=== PATIENT | male | born 1990 | race Caucasian/White ===

== ENCOUNTER 2017-09-28 18:53 | Emergency (ER) | payer SELFPAY ==
[2017-09-28 18:54] VITALS: BP 140/82; PULSE 68; RESP 20; TEMP 36.6; O2SAT 100; BMI 31.9
--- NOTE | 2017-09-28 20:09 | HMH.EDGIBL ---
ED Disposition Clinical Impression: Hemorrhoid Qualifiers: Hemorrhoid type: unspecified Qualified Code(s): K64.9 - Unspecified hemorrhoids Disposition: Home, Self-Care Condition on Discharge: Good Instructions: DI for Hemorrhoids Additional Instructions: call surg in am for follow up - Critical Care Critical Care Time: No Attestation: On 09/28/17, the high probability of a clinically significant, sudden or life threatening deterioration of the following system(s) required my full and direct attention, intervention and personal management. The time I documented below is in addition to time spent performing reported procedures but includes the following listed in this critical care notation. Medical Decision Making - Medical Records Medical records reviewed: Yes: I reviewed the patient's medical records. - Nolan Inquiry Pt receiving controlled substance: No Vital Signs: 09/28/17 18:54 Temperature 97.8 F Temperature Source Oral Pulse Rate [Left Brachial] 68 Respiratory Rate 20 Blood Pressure [Left Arm] 140/82 Blood Pressure Mean [Left Arm] 101 Blood Pressure Source [Left Arm] Automatic Cuff Blood Pressure Position [Left Arm] Sitting 02 Sat by Pulse Oximetry 100 Oxygen Delivery Method Room Air - Physician Consults Physician Consulted: ronyran Reason -: Pt condition GI Bleed HPI - General Chief complaint: Skin/Abscess/Foreign Body Stated complaint: hemorrhoids Time Seen by Provider: 09/28/17 20:09 Mode of Arrival: Ambulatory Source of Information: Patient, Relative, Medical Record Limitations: No Limitations Description of Symptoms (Recalled from ER Triage Doc. by RN): Pt states has 2 large hemrrhoids, states has been using preparation H and sitz baths x5 days with no relief. - History of Present Illness HPI Narrative: nonbleeding hemmorroid with pain progressive over the last few days and seen by pcp - reffered to surg MD complaint: other (hemmorroid) Onset (ago): day(s) Consistency: intermittent Severity: moderate Exacerbating factors: bowel movement Context: hemorrhoids Treatments Prior to Arrival: topical ointment - Related Data Home Medications Medication Instructions Recorded Confirmed Citalopram Hydrobromide [Celexa] 20 mg PO DAILY 09/28/17 09/28/17 Allergies Allergy/AdvReac Type Severity Reaction Status Date / Time Pertussis Vaccines Allergy Mild Verified 09/28/17 19:03 [PERTUSSIS VACCINES] TOPICAL STEROIDS Allergy Unknown Uncoded 06/23/17 14:50 [facility] History I have reviewed the patient's past medical history: Yes Medical History: Denies:: Diabetes Mellitus Type 1, Diabetes Mellitus Type 2 - Social History Smoking Status: Never smoker Tobacco Type: smokeless tobacco Alcohol Intake: never - Psychiatric History Expresses thoughts of harming self/others: None Suicide Plan Description: No Plan ROS Obtained: Yes All systems reviewed & no additional complaints - Constitutional Constitutional: Denies fever(s) - Eyes Eyes: Denies change in vision - ENT Ears, Nose, Mouth, and Throat: Denies sore throat - Cardiovascular Cardiovascular: Denies chest pain - Respiratory Respiratory: No cough - Gastrointestinal Gastrointestingal: Reports: other (hemmorroids). Denies: abdominal pain, black, tarry stools - Genitourinary Male Genitourinary: Denies hematuria - Musculoskeletal Musculoskeletal: Denies joint pain - Integumentary/Breasts Skin/Breast: Denies rash - Neurologic Neurologic: Denies seizure-like activity Physical Exam - General General appearance: in no apparent distress - Head Head exam: normocephalic - Eye Eye exam: Present: PERRL, EOMI - ENT ENT exam: Present: mucous membranes moist - Neck Neck exam: Present: trachea midline - Respiratory Respiratory exam: Absent: respiratory distress - Cardiovascular Cardiovascular exam: Present: regular rate - Abdominal Exam Abdominal exam: Present: soft - Rect
--- NOTE | 2017-09-28 20:12 | ED_ITS ---
ED Disposition Clinical Impression: Hemorrhoid Qualifiers: Hemorrhoid type: unspecified Qualified Code(s): K64.9 - Unspecified hemorrhoids Disposition: Home, Self-Care Condition on Discharge: Good Instructions: DI for Hemorrhoids Additional Instructions: call surg in am for follow up - Critical Care Critical Care Time: No Attestation: On 09/28/17, the high probability of a clinically significant, sudden or life threatening deterioration of the following system(s) required my full and direct attention, intervention and personal management. The time I documented below is in addition to time spent performing reported procedures but includes the following listed in this critical care notation. Medical Decision Making - Medical Records Medical records reviewed: Yes: I reviewed the patient's medical records. - Nolan Inquiry Pt receiving controlled substance: No Vital Signs: 09/28/17 18:54 Temperature 97.8 F Temperature Source Oral Pulse Rate [Left Brachial] 68 Respiratory Rate 20 Blood Pressure [Left Arm] 140/82 Blood Pressure Mean [Left Arm] 101 Blood Pressure Source [Left Arm] Automatic Cuff Blood Pressure Position [Left Arm] Sitting 02 Sat by Pulse Oximetry 100 Oxygen Delivery Method Room Air - Physician Consults Physician Consulted: ronyran Reason -: Pt condition GI Bleed HPI - General Chief complaint: Skin/Abscess/Foreign Body Stated complaint: hemorrhoids Time Seen by Provider: 09/28/17 20:09 Mode of Arrival: Ambulatory Source of Information: Patient, Relative, Medical Record Limitations: No Limitations Description of Symptoms (Recalled from ER Triage Doc. by RN): Pt states has 2 large hemrrhoids, states has been using preparation H and sitz baths x5 days with no relief. - History of Present Illness HPI Narrative: nonbleeding hemmorroid with pain progressive over the last few days and seen by pcp - reffered to surg MD complaint: other (hemmorroid) Onset (ago): day(s) Consistency: intermittent Severity: moderate Exacerbating factors: bowel movement Context: hemorrhoids Treatments Prior to Arrival: topical ointment - Related Data Home Medications Medication Instructions Recorded Confirmed Citalopram Hydrobromide [Celexa] 20 mg PO DAILY 09/28/17 09/28/17 Allergies Allergy/AdvReac Type Severity Reaction Status Date / Time Pertussis Vaccines Allergy Mild Verified 09/28/17 19:03 [PERTUSSIS VACCINES] TOPICAL STEROIDS Allergy Unknown Uncoded 06/23/17 14:50 [facility] History I have reviewed the patient's past medical history: Yes Medical History: Denies:: Diabetes Mellitus Type 1, Diabetes Mellitus Type 2 - Social History Smoking Status: Never smoker Tobacco Type: smokeless tobacco Alcohol Intake: never - Psychiatric History Expresses thoughts of harming self/others: None Suicide Plan Description: No Plan ROS Obtained: Yes All systems reviewed & no additional complaints - Constitutional Constitutional: Denies fever(s) - Eyes Eyes: Denies change in vision - ENT Ears, Nose, Mouth, and Throat: Denies sore throat - Cardiovascular Cardiovascular: Denies chest pain - Respiratory Respiratory: No cough - Gastrointestinal Gastrointestingal: Reports: other (hemmorroids). Denies: abdominal pain, black , tarry stool
[2017-09-28 22:25] VITALS: BP 178/74; PULSE 85; RESP 20; TEMP 37.1; O2SAT 99
== END 2017-09-28 22:27 | disposition home or self-care (01) ==
PROVIDERS: Emergency Provider Emergency Medicine; Family Provider Internal Medicine Adolescent Medicine
DX: K64.5 Perianal venous thrombosis (principal)
CPT/HCPCS: 46083; 99281

== ENCOUNTER → 2018-06-10 09:47 | Outpatient (CLI) | payer OTHER, SELFPAY ==
--- NOTE | 2018-06-10 09:59 | XR_ITS ---
XR ankle RT min 3V HISTORY: ITS.REASON: RT ANKLE PAIN ORDERING PHYSICIAN: Redd Crespo MD PATIENT AGE: 28 years Comparison: None FINDINGS: No fracture or dislocation. No lytic or blastic change. There is normal mineralization.. The joint spaces are well-preserved. No significant degenerative/arthritic changes. No erosive changes evident. A well-circumscribed lucency is noted over the proximal and superior aspect of the ventricular probably related to an ununited ossification center or spur IMPRESSION: Negative ankle, no acute finding
== END ==
PROVIDERS: PCP Internal Medicine Adolescent Medicine; Visit Provider Family Medicine
DX: M25.571 Pain in right ankle and joints of right foot (principal)
CPT/HCPCS: 73610

== ENCOUNTER → 2018-09-07 17:55 | Outpatient (CLI) | payer OTHER, SELFPAY ==
[2018-09-07 21:38] LABS: Semen Viscosity Normal (Normal); WBCs,Semen Trace
[2018-09-07 21:39] LABS: 3Hr Motility Quality Moderate Progression (Mod-Rapid); 3Hr Sperm Motility 60 % (50-60); Motility Quality Good Progression (Mod-Rapid); Sperm Count 22 mil/mm3 (20-160); Sperm Morphology 57.5 (Normal); Sperm Motility 80 % (50-90)
== END ==
PROVIDERS: Visit Provider Nurse Practitioner Obstetrics & Gynecology
DX: Z31.41 Encounter for fertility testing (principal)
CPT/HCPCS: 89320

== ENCOUNTER 2019-09-29 08:13 | Observation (INO) ==
--- NOTE | 2019-09-29 08:21 | Emergency Department Note ---
ED Disposition Clinical Impression: Acute appendicitis Qualifiers: Acute appendicitis type: with localized peritonitis Appendicitis gangrene presence: unspecified whether gangrene present Appendicitis perforation presence: without perforation Appendicitis abscess presence: without abscess Qualified Code(s): K35.30 - Acute appendicitis with localized peritonitis, without perforation or gangrene Disposition: Admitted as Observation Condition on Discharge: [facility] Critical Care Time: No Attestation: On , the high probability of a clinically significant, sudden or life threatening deterioration of the following system(s) required my full and direct attention, intervention and personal management. The time I documented below is in addition to time spent performing reported procedures but includes the following listed in this critical care notation. Medical Decision Making - Nolan Inquiry Pt receiving controlled substance: Yes Nolan was queried for this patient: No Reason not queried -: Emergent pt cond-no time Risks and benefits of using a controlled substance: were not discussed with pt by me Vital Signs: 09/29/19 08:14 09/29/19 08:44 09/29/19 09:58 Temperature 98.5 F 98.2 F Temperature Source Oral Oral Pulse Rate 89 Pulse Rate [Right Brachial] 92 H 84 Respiratory Rate 17 15 18 Blood Pressure 125/79 Blood Pressure [Right Arm] 124/92 H 150/87 H Blood Pressure Mean [Right Arm] 102 108 02 Sat by Pulse Oximetry 99 100 Oxygen Delivery Method Room Air - Lab Data Lab Results 09/29/19 08:18: Urine Color Yellow, Urine Appearance Clear, Urine pH 7.5, Ur Specific [place] 1.020, Urine Protein Negative, Urine Glucose (UA) Negative, Urine Ketones Negative, Urine Blood Negative, Urine Nitrate Negative, Urine Bilirubin Negative, Urine Urobilinogen 0.2, Ur Leukocyte Esterase Negative, Urine RBC None, Urine WBC Occasional, Ur Squamous Epith Cells Occasional, Urine Bacteria None 09/29/19 08:25: WBC 15.5 H, RBC 5.30, Hgb 16.9, Hct 49.5, MCV 93.4, MCH 32.0 H, MCHC 34.2, RDW 13.2, Plt Count 229, MPV 8.2, Neut % (Auto) 89.0 H, Lymph % (Auto ) 7.7 L, [place] % (Auto) 2.7, Eos % (Auto) 0.4, Baso % (Auto) 0.2, Neut # (Auto) 13.8 H, Lymph # (Auto) 1.2, [place] # (Auto) 0.4, Eos # (Auto) 0.1, Baso # (Auto) 0.0, Total Counted 100, Neutrophils % (Manual) 88 H, Lymphocytes % (Manual) 9 L, Monocytes % (Manual) 3, Platelet Estimate Normal, RBC Morphology Normal 09/29/19 08:25: Sodium 141, Potassium 4.0, Chloride 104, Carbon Dioxide 25, Anion Gap 16.0 H, BUN 15, Creatinine 1.00, Estimated Creat Clear 130, Estimated GFR 87, Est GFR ( Amer) 105, Glucose 121 H, Calcium 9.8, Total Bilirubin 1.0, AST 26, ALT 26, Alkaline Phosphatase 79, C-Reactive Protein 8.8 H, Total Protein 7.9, Albumin 4.7, Globulin 3.2, Albumin/Globulin Ratio 1.5, Amylase 73 09/29/19 08:25: ESR 5 09/29/19 08:25: Lipase 80 09/29/19 10:20: Urine Color Yellow, Urine Appearance Clear, Urine pH 6.0, Ur Specific [place] <= 1.005, Urine Protein Negative, Urine Glucose (UA) Negative, Urine Ketones Trace, Urine Blood Trace-l, Urine Nitrate Negative, Urine Bilirubin Negative, Urine Urobilinogen 0.2, Ur Leukocyte Esterase Negative, Urine WBC Occasional, Ur Squamous Epith Cells Occasional, Urine Bacteria Trace Result diagrams: 09/29/19 08:25 09/29/19 08:25 Orders (Tests/Meds): ED MEDICATIONS Generic Name Dose Route Start Last Admin Trade Name Freq PRN Reason Stop Dose Admin Hydrocodone Bitart/Acetaminophen 1 tab 09/29/19 11:26 09/29/19 17:05 [place] 5/325mg Tablet PO 10/29/19 11:25 1 tab Q6HP PRN Administration Moderate to Severe Pain Lactated Ringer's 1,000 mls @ 100 mls/hr 09/29/19 10:15 09/29/19 12:55 Lactated Ringer's 1000 Ml Bag IV 09/29/19 20:14 100 mls/hr .Q10H ONE Administration Piperacillin Sod/Tazobactam 100 mls @ 200 mls/hr 09/29/19 16:00 09/29/19 16:58 Sod 4.5 gm/ Sodium Chloride IV 04/09/20 15:59 200 mls/hr Q8H NATHALY Administration Protocol Morphine Sulfate 2 mg 09/29/19 11:26 Morphine 2mg/Ml Syringe IV 10/29/19 11:25 Q2HP PRN Severe Pain Ondansetron HCl 4 mg 09/29/19 11:26 Zofran 4mg/2ml Vial IV 10/29/19 11:25 Q6HP PRN Nausea Sodium Chloride 8 ml 09/29/19 08:31 09/29/19 08:38 Sodium Chloride 0.9% 10ml Vial IV 10/29/19 08:30 8 ml NEEDED PRN Administration dilute pepcid Discontinued Medications Generic Name Dose Route Start Last Admin Trade Name Freq PRN Reason Stop Dose Admin Famotidine 20 mg 09/29/19 08:31 09/29/19 08:38 Pepcid 20mg/2ml Vial IV 09/29/19 08:32 20 mg ONCE ONE Administration Hydromorphone HCl 0.5 mg 09/29/19 11:39 Dilaudid 2mg/Ml Syringe IV 09/29/19 13:39 Q5MINP PRN Moderate to Severe Pain Sodium Chloride 1,000 mls @ 999 mls/hr 09/29/19 08:30 09/29/19 08:38 Sod Chlor 0.9% 1000ml Bag IV 09/29/19 09:30 999 mls/hr .Q1H1M NATHALY Administration Ampicillin Sodium/Sulbactam 100 mls @ 100 mls/hr 09/29/19 10:15 09/29/19 10:12 Sodium 3 gm/ Sodium Chloride IV 09/29/19 11:14 100 mls/hr ONCE ONE Administration Ioversol 75 ml 09/29/19 09:12 09/29/19 09:13 Rad-Optiray 350 100ml Vial IV 09/29/19 09:13 75 ml ONCE ONE Administration Protocol Meperidine HCl 12.5 mg 09/29/19 11:39 Meperidine 25mg/Ml 1ml Syringe IV 09/29/19 13:39 Q5MINP PRN Shivering Meperidine HCl 25 mg 09/29/19 11:39 Meperidine 25mg/Ml 1ml Syringe IV 09/29/19 13:39 Q5MINP PRN Shivering Metoclopramide HCl 5 mg 09/29/19 08:31 09/29/19 08:38 Reglan 10mg/2ml Vial IVP 09/29/19 08:32 5 mg ONCE ONE Administration Morphine Sulfate 4 mg 09/29/19 08:31 09/29/19 08:38 Morphine 4mg/Ml Syringe IV 09/29/19 08:32 4 mg ONCE ONE Administration Morphine Sulfate 2 mg 09/29/19 11:39 Morphine 2mg/Ml Syringe IV 09/29/19 13:39 Q5MINP PRN Severe Pain Ondansetron HCl 4 mg 09/29/19 08:31 09/29/19 09:52 Zofran 4mg/2ml Vial IV 09/29/19 08:32 Not Given ONCE ONE Ondansetron HCl 4 mg 09/29/19 11:39 Zofran 4mg/2ml Vial IV 09/29/19 13:39 Q6HP PRN Nausea Promethazine HCl 6.25 mg 09/29/19 11:39 Phenergan 25mg/Ml 1ml Vial IV 09/29/19 13:39 [id number] PRN Nausea And Vomiting Sodium Chloride 10 ml 09/29/19 09:12 09/29/19 09:13 Rad-Saline Flush 10ml Syringe IV 09/29/19 09:13 10 ml ONCE ONE Administration Sodium Chloride 25 ml 09/29/19 11:39 Sod Chlor 0.9% 25ml Bag IV 09/29/19 13:39 NEEDED PRN for Use with IV Promethazine - CT Data CT Scan: Abdomen, Pelvis Time Received: 09:[address] Reviewed: Yes: I discussed the CT results w/the radiologist Findings Narrative: FINDINGS: LOWER THORAX: No acute finding ABDOMEN & PELVIS: The liver, gallbladder, spleen, adrenal glands, pancreas, and kidneys have an unremarkable appearance. No intestinal obstruction or free air. The appendix is thickened measuring up to 9 mm with minimal haziness of the periappendiceal fat compatible with acute appendicitis. No evidence of perforation or abscess. There are few scattered diverticula but no evidence of diverticulitis. No acute bony findings IMPRESSION: Distended appendix with stranding of the periappendiceal fat compatible with acute appendicitis. No abscess or perforation evident. Dr. Zuniga in the ER notified of the above findings by phone 09/29/2019 at 9:20 a.m. Dictated by: Conor Morris MD 09/29/2019 09:28 Electronically signed by Conor Morris MD in [place] 09/29/2019 09:28 - Physician Consults Physician Consulted: Dr. Preston Time: 09:39 Reason -: Surgical Eval/Care Comment/Response: He will come in and see the patient. - Reevaluation(s) Time: 09:25 Reevaluation #1: feeling better, comfortable. notified of diagnosis. surgery called. General Adult HPI - General Chief complaint: Abdominal Pain Stated complaint: abdominal pain Time Seen by Provider: 09/29/19 08:32 Mode of Arrival: Ambulatory Limitations: No Limitations Description of Symptoms (Recalled from ER Triage Doc. 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 States he hurts in his upper abdomen, radiating to his back, and his lower abdomen as well. Has a hx of IBS and "stomach issues". - History of Present Illness HPI narrative: 10-hour history of abdominal pain. Locates the primary pain in the epigastrium midline but says lower abdomen also feels like "I have been doing crunches". 2 episodes of vomiting, but thinks it was due to the pain. Radiation to the back. Normal bowel movement. No fever. Prior history of stomach problems diagnosed as IBS and lactose intolerance. No prior endoscopies. He has had a gallbladder evaluation about 3 years ago that was negative. No prior surgeries. - Related Data Home Medications Medication Instructions Recorded Confirmed No Known Home Medications 09/29/19 09/29/19 Allergies Allergy/AdvReac Type Severity Reaction Status Date / Time Pertussis Vaccines Allergy Mild Verified 09/29/19 08:20 [PERTUSSIS VACCINES] TOPICAL STEROIDS Allergy Unknown Uncoded 10/02/17 15:32 [facility] History - Hepatitis A Screen Drug use history?: No High risk sexual behaviors?: No History of sexually transmitted infection?: No Currently employed?: No Childcare worker?: No Do you have indoor plumbing?: Yes Do you have electricity?: Yes Attestation statement:: This patient has been screened for Hepatitis A risk factors. I have reviewed the patient's past medical history: Yes Medical History: Denies:: Diabetes Mellitus Type 1, Diabetes Mellitus Type 2 - Social History Smoking Status: Never smoker Tobacco Type: smokeless tobacco Alcohol Intake: current Alcohol Intake Frequency:: holidays/special occasions only Substance Use Type: denies use Family Hx:: Hypertension, Diabetes ROS Obtained: Yes Systems reviewed as appropriate & no additional complaints - Constitutional Constitutional: Denies fever(s) - Gastrointestinal Gastrointestingal: Reports: abdominal pain, nausea, vomiting. Denies: constipation, diarrhea - Genitourinary Male Genitourinary: Denies difficulty urinating - Musculoskeletal Musculoskeletal: Reports back pain Physical Exam - General General appearance: alert, in distress - Head Head exam: atraumatic, normocephalic - Eye Eye exam: Present: normal appearance, EOMI - ENT ENT exam: Present: mucous membranes moist - Neck Neck exam: Present: normal inspection, trachea midline - Chest Chest inspection: Present: symmetric chest wall rise - Respiratory Respiratory exam: Absent: respiratory distress - Cardiovascular Cardiovascular exam: Present: regular rate - Abdominal Exam Abdominal exam: Present: soft, tenderness, guarding Abdominal tenderness: Present: RLQ, epigastrium - Extremities Exam Extremities exam: Present: normal inspection - Neurological Exam Neurological exam: Present: alert, oriented X3 - Psychiatric Psychiatric exam: Present: normal affect, normal mood - Skin Skin exam: Present: warm, dry
[2019-09-29 08:27] LABS: Microscopic, Urine URINE MICROSCOPIC (MICROSCOPIC)
[2019-09-29 08:28] LABS: Appearance,Urine CLEAR (Clear); Bilirubin,Urine Negative (Negative); Blood, Urine Negative (Negative); Color,Urine YELLOW (Yellow); Glucose,Urine (UA) Negative (Negative); Ketones,Urine Negative (Negative); Leukocyte Esterase,Urine Negative (Negative); PH,Urine 7.5 (5.0-8.5); Protein,Urine Negative (Negative); Urobilinogen,Urine 0.2 EU/dl (0.2)
[2019-09-29 08:37] LABS: Squamous Epithelial Cell,Urine Occasional #/hpf (0-5); WBC,Urine Occasional #/hpf (0-3)
[2019-09-29 08:40] LABS: Basophils % 0.2 % (0.1-2.0); Eosinophils # 0.1 K/mm3 (0.0-0.4); Eosinophils % 0.4 % (0.1-12.0); Hematocrit 49.5 % (42.0-52.0); Hemoglobin 16.9 g/dL (14.1-18.0); Lymphocytes # 1.2 K/mm3 (0.7-4.5); Lymphocytes % 7.7 % (10-50); Mean Corpuscular HGB Conc 34.2 g/dL (31.8-35.4); Mean Corpuscular Volume 93.4 fl (80-94); Mean Platelet Volume 8.2 fl (7.4-10.4); Monocytes # 0.4 K/mm3 (0.1-1.0); Monocytes % 2.7 % (1.7-9.3); Neutrophils # 13.8 K/mm3 (1.8-7.8); Platelet Count 229 K/mm3 (142-424); Red Cell Distribution Width 13.2 % (11.5-17.5); White Blood Count 15.5 K/mm3 (4.8-10.8)
[2019-09-29 08:42] LABS: Albumin Level 4.7 g/dl (3.5-5.0); Albumin/Globulin Ratio 1.5 (1.1-1.8); Calcium 9.8 mg/dl (8.4-10.2); Globulin 3.2 g/dL (1.3-3.2); Total Protein,Serum 7.9 g/dl (6.3-8.2)
[2019-09-29 08:48] LABS: C-Reactive Protein 8.8 mg/L (0-4)
[2019-09-29 09:05] LABS: Lymphocytes % 9 % (10-50); Monocytes % 3 % (2-9); Neutrophils % 88 % (42-76); Total Cells Counted 100
[2019-09-29 09:06] LABS: RBC Morphology Normal
--- NOTE | 2019-09-29 11:09 | Pharmacy Consult Notes ---
[facility] Pharmacy VTE Monitoring - Patient Demographics Admission date: 09/29/19 Report Date: 09/29/19 Time: 11:08 Allergies/Adverse Reactions: Patient Allergies Pertussis Vaccines [PERTUSSIS VACCINES] Allergy (Mild, Verified 09/29/19 08:20) TOPICAL STEROIDS Allergy (Unknown, Uncoded 10/02/17 15:32) Height: 1.78 m Weight: 86.183 kg Patient Problems: Current Active Problems Acute appendicitis (Acute) - VTE Risk Labs: VTE Related Lab Results Hgb 16.9 g/dL (14.1-18.0) 09/29/19 08:25 Hct 49.5 % (42.0-52.0) 09/29/19 08:25 Plt Count 229 K/mm3 (142-424) 09/29/19 08:25 BUN 15 mg/dl (9-20) 09/29/19 08:25 Creatinine 1.00 mg/dl (0.66-1.25) 09/29/19 08:25 Estimated Creat Clear 130 mL/min (50-200) 09/29/19 08:25 Clinical Trial Participant: No - Prophylaxis VTE Prophylaxis Ordered?: Yes Types of VTE Prophylaxis: TEDS Knee High
--- NOTE | 2019-09-29 11:32 | Operative Note ---
Date of procedure: 09/29/19 Pre-op Diagnosis:: Appendicitis Post-op Diagnosis:: Suppurative appendicitis Procedure performed:: Laparoscopic appendectomy Surgeon:: Hola Preston MD [employer]ER:: Prudencio Betancourt Anesthesia: SUZANNA Estimated blood loss (mL): 15 Operative findings:: Severe periappendiceal inflammation with suppurative changes along the mid/distal appendix Operative note:: After informed consent was obtained the patient was taken to the operating room and placed in the supine position. General anesthesia was induced and his abdomen was prepped and draped in a sterile fashion. After infiltration local anesthetic an infraumbilical incision was made. A Veress needle was placed in position. The abdomen was insufflated. A 12 mm optical trocar was placed in position. Under direct visualization a 5 mm trochars placed in the suprapubic position and an additional 5 mm trocar was placed in the left lower quadrant. The appendix was carefully inspected. Severe inflammation was encountered and the appendix was essentially "stuck" to the lateral abdominal wall. Suppurative changes along the mid/distal appendix were confirmed. A combination of blunt dissection and harmonic jazmine were utilized to elevate/free the appendix. Harmonic jazmine were utilized to take down the mesoappendix. An Endopath 45 stapling device was utilized to transect the appendix at its base. The appendix was placed in a retrieval bag and removed through the infraumbilical trocar site. The right lower quadrant was thoroughly irrigated. No active bleeding or sign of injury noted. The fluid was evacuated. Fascia at the infraumbilical trocar site was reapproximated with 0 Ethibond. Pneumoperitoneum was released as of the remaining trocars were removed. All wounds were irrigated and skin was closed with 4-0 Monocryl in a subcuticular fashion. Steri-Strips were applied and the patient's anesthetic agents were reversed prior to transfer to recovery. Condition: stable Disposition: PACU Specimens:: Appendix Complications:: No immediate
--- NOTE | 2019-09-29 11:38 | Progress Note ---
[facility] Anesthesia Checklist - Patient Identification Patient Identification: Arm Band - Structural Data Admitted From: Home Planned Operative Procedure/s: laparoscopic appendectomy Consent for Planned Operative Procedure(s) Verified: Yes Verified Documents: Surgical Consent, History and Physical - NPO Status Verified Time NPO: 00:00 - Additional verifications Anesthesia Reactions: No - Airway Assessment C-Spine Mobility Assessed: Yes (mp2) TMJ Mobility Assessed: Yes Dentition: Good Dentition - Neurological Assessment Level of Consciousness: Awake, Alert - Anesthesia Plan Anesthesia Risk discussed: Yes Anesthesia Plan: Verified ASA Class: II (e) Anesthesia Type: General [facility] History I have reviewed the patient's past medical history: Yes Medical History: Denies:: Cancer, Diabetes Mellitus Type 1, Diabetes Mellitus Type 2, MRSA *Have you ever received a pneumonia vaccine?: No *Have you received a flu vaccine this season?: Yes Anesthesia experience/problems:: nac Other Surgeries: Yes: No Previous Surgery Amputation: No Fractures: No - *Social History Smoking Status: Never smoker Tobacco Type: smokeless tobacco Alcohol Intake: never Alcohol Intake Frequency:: holidays/special occasions only Substance Use Type: denies use *Occupational Status:: employed Housing: house *Travel in the last 8 weeks: None Family Hx:: Hypertension, Diabetes
--- NOTE | 2019-09-29 11:38 | Progress Note ---
[facility] Anesthesia Record Part I Intake, IV Amount: 1,300 Estimated blood loss (mL): 10 Urine output (mL): 250 Blood Pressure: 158/93 SaO2: 100 Pulse Rate: 84 Respiratory Rate: 16 Temperature: 97.6 F Patient is:: Drowsy, Stable Stable to PACU at:: 11:30
--- NOTE | 2019-09-29 12:57 | Progress Note ---
[facility] Anesthesia Record Part II Discharge Time: 12:00 Destination: Medical Surgical Department PACU nurse assessment reviewed?: Yes Patient Condition:: Good Anesthesia Complications:: None Swallowing reflex intact?: Yes Cyanosis?: No Blood Pressure: 135/76 Pulse Rate: 60 Temperature: 97.8 F Mental Status: Alert & Oriented Pain level:: 0 Nausea and/or vomitting:: None Intake, IV Amount: 0
[2019-09-30 06:18] LABS: Eosinophils # 0.2 K/mm3 (0.0-0.4); Eosinophils % 2.3 % (0.1-12.0); Monocytes # 0.4 K/mm3 (0.1-1.0); Red Cell Distribution Width 13.3 % (11.5-17.5)
[2019-09-30 06:34] LABS: Basophils % 0.4 % (0.1-2.0); Hematocrit 43.6 % (42.0-52.0); Lymphocytes % 22.1 % (10-50); Mean Corpuscular HGB Conc 33.8 g/dL (31.8-35.4); Mean Corpuscular Volume 92.2 fl (80-94); Mean Platelet Volume 7.8 fl (7.4-10.4); Monocytes % 4.1 % (1.7-9.3); Neutrophils # 6.3 K/mm3 (1.8-7.8); Platelet Count 191 K/mm3 (142-424); Red Blood Count 4.73 M/mm3 (4.60-6.20); White Blood Count 8.8 K/mm3 (4.8-10.8)
[2019-09-30 06:38] LABS: Hemoglobin 14.8 g/dL (14.1-18.0)
--- NOTE | 2019-09-30 08:13 | Progress Note ---
Subjective Patient reports: feels better Exam Vital signs and Labs for Last 24 Hours: Temp Pulse Resp BP Pulse Ox 98.0 F 64 16 110/72 97 09/30/19 04:00 09/30/19 04:00 09/30/19 04:00 09/30/19 04:00 09/30/19 04:00 Laboratory Results - last 24 hr 09/29/19 08:18: Urine Color Yellow, Urine Appearance Clear, Urine pH 7.5, Ur Specific [place] 1.020, Urine Protein Negative, Urine Glucose (UA) Negative, Urine Ketones Negative, Urine Blood Negative, Urine Nitrate Negative, Urine Bilirubin Negative, Urine Urobilinogen 0.2, Ur Leukocyte Esterase Negative, Urine RBC None, Urine WBC Occasional, Ur Squamous Epith Cells Occasional, Urine Bacteria None 09/29/19 08:25: WBC 15.5 H, RBC 5.30, Hgb 16.9, Hct 49.5, MCV 93.4, MCH 32.0 H, MCHC 34.2, RDW 13.2, Plt Count 229, MPV 8.2, Neut % (Auto) 89.0 H, Lymph % (Auto) 7.7 L, [place] % (Auto) 2.7, Eos % (Auto) 0.4, Baso % (Auto) 0.2, Neut # (Auto) 13.8 H, Lymph # (Auto) 1.2, [place] # (Auto) 0.4, Eos # (Auto) 0.1, Baso # (Auto) 0.0, Total Counted 100, Neutrophils % (Manual) 88 H, Lymphocytes % (Manual) 9 L, Monocytes % (Manual) 3, Platelet Estimate Normal, RBC Morphology Normal 09/29/19 08:25: Sodium 141, Potassium 4.0, Chloride 104, Carbon Dioxide 25, Anion Gap 16.0 H, BUN 15, Creatinine 1.00, Estimated Creat Clear 130, Estimated GFR 87, Est GFR ( Amer) 105, Glucose 121 H, Calcium 9.8, Total Bilirubin 1.0, AST 26, ALT 26, Alkaline Phosphatase 79, C-Reactive Protein 8.8 H, Total Protein 7.9, Albumin 4.7, Globulin 3.2, Albumin/Globulin Ratio 1.5, Amylase 73 09/29/19 08:25: ESR 5 09/29/19 08:25: Lipase 80 09/29/19 10:20: Urine Color Yellow, Urine Appearance Clear, Urine pH 6.0, Ur Specific [place] <= 1.005, Urine Protein Negative, Urine Glucose (UA) Negative, Urine Ketones Trace, Urine Blood Trace-l, Urine Nitrate Negative, Urine Bilirubin Negative, Urine Urobilinogen 0.2, Ur Leukocyte Esterase Negative, Urine WBC Occasional, Ur Squamous Epith Cells Occasional, Urine Bacteria Trace 09/30/19 05:47: WBC 8.8 D, RBC 4.73, Hgb 14.8 D, Hct 43.6, MCV 92.2, MCH 31.2, MCHC 33.8, RDW 13.3, Plt Count 191, MPV 7.8, Neut % (Auto) 71.0, Lymph % (Auto) 22.1, [place] % (Auto) 4.1, Eos % (Auto) 2.3, Baso % (Auto) 0.4, Neut # (Auto) 6.3, Lymph # (Auto) 2.0, [place] # (Auto) 0.4, Eos # (Auto) 0.2, Baso # (Auto) 0.0 I & O for Last 24 hours: Intake & Output 09/27/19 09/28/19 09/29/19 09/30/19 11:59 11:59 11:59 11:59 Intake Total 1300 / 1300 1401 / 1401 Output Total 450 / 450 Balance 1300 / 1300 951 / 951 Weight 190 lb 181 lb 1 oz - Constitutional no acute distress - *Routine Respiratory Exam Absent: respiratory distress - *Routine Cardiovascular Exam Present: RRR - *Routine Abdominal Exam Present: soft Comments: Dressings intact. No cellulitis. Progress Note: A&P (1) Suppurative appendicitis Status: Acute Assessment and plan: Overall, doing well status post laparoscopic appendectomy Discharge home with close outpatient follow-up Complete short course of antibiotics secondary to suppurative nature of appendicitis Slowly advance diet Current Visit: Yes
--- NOTE | 2019-09-30 08:19 | Discharge Summary ---
General - General Admission date:: 09/29/19 Discharge date: 09/30/19 HPI HPI: This is a 29-year-old gentleman who presented to the emergency department with increasing right lower quadrant pain and nausea. A CT scan revealed changes consistent with appendicitis and the surgical service was consulted for evaluation and management. Hospital Course Hospital Course: The patient underwent laparoscopic appendectomy. Please see operative report for detail. Intraoperative findings confirmed suppurative appendicitis. Secondary to these findings, he was placed in observation overnight. He convalesced well and remained afebrile with stable and normal vital signs. On the morning of postoperative day 1 he was deemed appropriate for discharge. Objective Vital signs: Temp Pulse Resp BP Pulse Ox 98.0 F 64 16 110/72 97 09/30/19 04:00 09/30/19 04:00 09/30/19 04:00 09/30/19 04:00 09/30/19 04:00 no acute distress - *Routine HEENT Exam Head: Present: normocephalic, atraumatic - *Routine Neck Exam Present: full ROM - Routine Chest/Breast/Axilla Exam Chest wall: Absent: tenderness - *Routine Respiratory Exam Absent: respiratory distress - *Routine Cardiovascular Exam Present: RRR - *Routine Abdominal Exam Present: soft - *Routine Extremities Exam Present: full ROM - Routine Back/Spine/Pelvis Exam Back/Spine: Present: full ROM - *Routine Skin Exam Absent: cyanosis, erythema - *Routine Neurological Exam Present: alert, oriented X3 - Routine Psychiatric Exam Present: normal affect Results Labs on day of discharge: Labs from last 24 hours 09/30/19 09/29/19 09/29/19 05:47 10:20 08:25 WBC 8.8 D RBC 4.73 Hgb 14.8 D Hct 43.6 MCV 92.2 MCH 31.2 MCHC 33.8 RDW 13.3 Plt Count 191 MPV 7.8 Neut % (Auto) 71.0 Lymph % (Auto) 22.1 [place] % (Auto) 4.1 Eos % (Auto) 2.3 Baso % (Auto) 0.4 Neut # (Auto) 6.3 Lymph # (Auto) 2.0 [place] # (Auto) 0.4 Eos # (Auto) 0.2 Baso # (Auto) 0.0 Total Counted Neutrophils % (Manual) Lymphocytes % (Manual) Monocytes % (Manual) Platelet Estimate RBC Morphology ESR Sodium Potassium Chloride Carbon Dioxide Anion Gap BUN Creatinine Estimated Creat Clear Estimated GFR Est GFR ( Amer) Glucose Calcium Total Bilirubin AST ALT Alkaline Phosphatase C-Reactive Protein Total Protein Albumin Globulin Albumin/Globulin Ratio Amylase Lipase 80 Urine Color Yellow Urine Appearance Clear Urine pH 6.0 Ur Specific [place] <= 1.005 Urine Protein Negative Urine Glucose (UA) Negative Urine Ketones Trace Urine Blood Trace-l Urine Nitrate Negative Urine Bilirubin Negative Urine Urobilinogen 0.2 Ur Leukocyte Esterase Negative Urine RBC Urine WBC Occasional Ur Squamous Epith Cells Occasional Urine Bacteria Trace 09/29/19 09/29/19 09/29/19 08:25 08:25 08:25 WBC 15.5 H RBC 5.30 Hgb 16.9 Hct 49.5 MCV 93.4 MCH 32.0 H MCHC 34.2 RDW 13.2 Plt Count 229 MPV 8.2 Neut % (Auto) 89.0 H Lymph % (Auto) 7.7 L [place] % (Auto) 2.7 Eos % (Auto) 0.4 Baso % (Auto) 0.2 Neut # (Auto) 13.8 H Lymph # (Auto) 1.2 [place] # (Auto) 0.4 Eos # (Auto) 0.1 Baso # (Auto) 0.0 Total Counted 100 Neutrophils % (Manual) 88 H Lymphocytes % (Manual) 9 L Monocytes % (Manual) 3 Platelet Estimate Normal RBC Morphology Normal ESR 5 Sodium 141 Potassium 4.0 Chloride 104 Carbon Dioxide 25 Anion Gap 16.0 H BUN 15 Creatinine 1.00 Estimated Creat Clear 130 Estimated GFR 87 Est GFR ( Amer) 105 Glucose 121 H Calcium 9.8 Total Bilirubin 1.0 AST 26 ALT 26 Alkaline Phosphatase 79 C-Reactive Protein 8.8 H Total Protein 7.9 Albumin 4.7 Globulin 3.2 Albumin/Globulin Ratio 1.5 Amylase 73 Lipase Urine Color Urine Appearance Urine pH Ur Specific [place] Urine Protein Urine Glucose (UA) Urine Ketones Urine Blood Urine Nitrate Urine Bilirubin Urine Urobilinogen Ur Leukocyte Esterase Urine RBC Urine WBC Ur Squamous Epith Cells Urine Bacteria 09/29/19 08:18 WBC RBC Hgb Hct MCV MCH MCHC RDW Plt Count MPV Neut % (Auto) Lymph % (Auto) [place] % (Auto) Eos % (Auto) Baso % (Auto) Neut # (Auto) Lymph # (Auto) [place] # (Auto) Eos # (Auto) Baso # (Auto) Total Counted Neutrophils % (Manual) Lymphocytes % (Manual) Monocytes % (Manual) Platelet Estimate RBC Morphology ESR Sodium Potassium Chloride Carbon Dioxide Anion Gap BUN Creatinine Estimated Creat Clear Estimated GFR Est GFR ( Amer) Glucose Calcium Total Bilirubin AST ALT Alkaline Phosphatase C-Reactive Protein Total Protein Albumin Globulin Albumin/Globulin Ratio Amylase Lipase Urine Color Yellow Urine Appearance Clear Urine pH 7.5 Ur Specific [place] 1.020 Urine Protein Negative Urine Glucose (UA) Negative Urine Ketones Negative Urine Blood Negative Urine Nitrate Negative Urine Bilirubin Negative Urine Urobilinogen 0.2 Ur Leukocyte Esterase Negative Urine RBC None Urine WBC Occasional Ur Squamous Epith Cells Occasional Urine Bacteria None DS: Diagnosis - Discharge Diagnosis (1) Suppurative appendicitis Status: Acute Discharge Plan - Patient Discharge Instructions ACTIVITY: No heavy lifting DIET: advance to your usual diet (Very slow advancement as tolerated) Patient Instructions: Appendicitis, DI for Acute Abdomen - Follow up Plan Follow up with: ProviderMaral MD [Primary Care Provider] - Hola Preston MD [Staff Physician] - 1 week Disposition: Home, Self-Alf Medications: Home Medications Medication Instructions Recorded Confirmed Type Amoxicillin/Potassium Clav 1 tab PO Q12H #10 tab 09/30/19 Rx [Augmentin 875-125 Tablet] Hydrocod/Acet 5/325 mg [[place] 1 - 2 tab PO Q6HP PRN #13 tab 09/30/19 Rx 5/325mg tablet] Prescriptions/Medication Reconciliation: New Hydrocod/Acet 5/325 mg [[place] 5/325mg tablet] 1 - 2 tab PO Q6HP PRN #13 tab PRN Reason: post-op pain Amoxicillin/Potassium Clav [Augmentin 875-125 Tablet] 1 tab PO Q12H #10 tab - Problem Reconciliation Problems Reviewed?: Yes
== END 2019-09-30 09:24 | disposition home or self-care (01) ==
LOC: ER 08:13 → SDC 09:48 → INTOOBSV 10:51 → 2ND 10:51
PROVIDERS: ADMIT Surgery; ATTEND Surgery
DX: Z88.8 Allergy status to other drugs, medicaments and biological substances; Z88.7 Allergy status to serum and vaccine; K35.80 Unspecified acute appendicitis
CPT/HCPCS: 36415; 74177; 80053; 81001; 82150; 83690; 85007; 85025; 85651; 86140; 96365; 96374; 96375; 99283; G0378; J0131; J2405; J2543; J2710; Q9967

== ENCOUNTER → 2020-03-15 09:30 | Outpatient (CLI) | payer OTHER, SELFPAY ==
[2020-03-15 10:12] LABS: Basophils # 0.1 K/mm3 (0-0.2); Basophils % 0.8 % (0.1-2.0); Eosinophils # 0.2 K/mm3 (0.0-0.4); Eosinophils % 2.2 % (0.1-12.0); Hematocrit 46.4 % (42.0-52.0); Hemoglobin 16.5 g/dL (14.1-18.0); Lymphocytes # 1.9 K/mm3 (0.7-4.5); Mean Corpuscular HGB Conc 35.5 g/dL (31.8-35.4); Mean Corpuscular Volume 92.8 fl (80-94); Mean Platelet Volume 7.6 fl (7.4-10.4); Monocytes # 0.2 K/mm3 (0.1-1.0); Monocytes % 3.2 % (1.7-9.3); Neutrophils # 4.8 K/mm3 (1.8-7.8); Neutrophils % 67.9 % (37.0-80.0); Platelet Count 213 K/mm3 (142-424); Red Cell Distribution Width 13.2 % (11.5-17.5); White Blood Count 7.1 K/mm3 (4.8-10.8)
[2020-03-15 10:49] LABS: Chloride 107 mmol/L (98-107); Potassium 5.3 mmoL/L (3.5-5.1); Sodium 140 mmol/L (136-145)
[2020-03-15 10:52] LABS: Alanine Aminotransferase 22 U/L (12-78); Albumin Level 4.4 g/dl (3.5-5.0); Albumin/Globulin Ratio 1.6 (1.1-1.8); Alkaline Phosphatase 63 U/L (38-126); Anion Gap 14.3 mEq/L (5-15); Aspartate Amino Transferase 24 U/L (17-59); Bilirubin,Total 0.5 mg/dl (0.2-1.3); Blood Urea Nitrogen 15 mg/dl (9-20); Carbon Dioxide 24 mmol/L (22.0-30.0); Cholesterol 150 mg/dl (140-200); Estimated Glomerular Filt Rate 98 ml/min (>60); GFR (African American) 118 ML/MIN (>60); Globulin 2.7 g/dL (1.3-3.2); Glucose 101 mg/dl (74-100); Total Protein,Serum 7.1 g/dl (6.3-8.2); Triglycerides 94 mg/dl (30-150); VLDL Cholesterol 19 mg/dL (0-40)
[2020-03-15 10:53] LABS: Chol/HDL Ratio 2.8 (1-3.5); HDL Cholesterol 53 mg/dl (40-60)
[2020-03-15 11:03] LABS: Direct LDL Cholesterol 88.19 mg/dL (100-129)
== END ==
PROVIDERS: Visit Provider Internal Medicine Adolescent Medicine
DX: Z00.00 Encounter for general adult medical examination without abnormal findings (principal)
CPT/HCPCS: 36415; 80053; 80061; 85025

== ENCOUNTER → 2020-04-21 08:08 | Outpatient (CLI) | payer OTHER, SELFPAY ==
[2020-04-21 10:32] LABS: Coronavirus 19 IgG Antibody Negative (Negative); Coronavirus 19 IgM Antibody Negative (Negative)
== END ==
PROVIDERS: Visit Provider Urology
DX: Z01.818 Encounter for other preprocedural examination (principal); Z30.2 Encounter for sterilization
CPT/HCPCS: 36415; 86328

== ENCOUNTER 2020-04-23 08:11 | Day surgery (SDC) | payer OTHER, SELFPAY ==
[2020-04-18 13:42] VITALS: BMI 25.8
[2020-04-23 08:29] VITALS: BP 128/73; PULSE 71; RESP 15; TEMP 36.7; O2SAT 100
[2020-04-23 10:05] VITALS: BP 121/72; PULSE 79; RESP 16; TEMP 36.7; O2SAT 97
[2020-04-23 10:15] VITALS: BP 129/70; PULSE 66; RESP 16; O2SAT 96
[2020-04-23 10:25] VITALS: BP 121/72; PULSE 66; RESP 16; O2SAT 98
[2020-04-23 10:35] VITALS: BP 125/71; PULSE 67; RESP 16; O2SAT 98
--- NOTE | 2020-04-23 10:40 | HMH.ANESCL ---
[facility] Anesthesia Checklist - Structural Data Admitted From: Home Planned Operative Procedure/s: vasectomy Consent for Planned Operative Procedure(s) Verified: Yes - Additional verifications Anesthesia Reactions: No Hx Blood Transfusions: No Blood Transfusion Reaction: No - Airway Assessment C-Spine Mobility Assessed: Yes TMJ Mobility Assessed: Yes Dentition: Good Dentition - Neurological Assessment Level of Consciousness: Awake, Alert, Appropriate - Anesthesia Plan Anesthesia Risk discussed: Yes ASA Class: I Anesthesia Type: MAC [facility] History I have reviewed the patient's past medical history: Yes Medical History: Denies:: Cancer, Diabetes Mellitus Type 1, Diabetes Mellitus Type 2, MRSA, Seizures *Have you ever received a pneumonia vaccine?: No *Have you received a flu vaccine this season?: Yes Other Medical History: Denies: Blood Transfusion Reaction Anesthesia experience/problems:: none Other Surgeries: Yes: No Previous Surgery, Appendectomy Amputation: No Fractures: No - *Social History Last grade of school completed: Some college Smoking Status: Current every day smoker Tobacco Type: smokeless tobacco # Packs/Day (cigarettes): 1 Alcohol Intake: current Alcohol Intake Frequency:: a few times a month Substance Use Type: denies use *Occupational Status:: employed Housing: house Household Members: spouse *Travel in the last 8 weeks: None Family Hx:: Hypertension, Diabetes
--- NOTE | 2020-04-23 11:44 | P.OP_ITS ---
Date of procedure: 04/23/20 Pre-op Diagnosis:: Sterilization Post-op Diagnosis:: Sterilization Procedure performed:: Bilateral vasectomy Surgeon:: Faizan Glover MD SENIOR LITIGATION PARALEGAL:: Yonas Goddard Anesthesia: MAC Estimated blood loss (mL): 2 Clinical Note:: 30-year-old white male presents for vasectomy after second consultation 3 weeks ago. Operative findings:: Gross examination within normal limits. Patient tolerated procedure without complication. Operative note:: Patient taken to the operating room after informed consent was obtained. Placed on the operating table in the supine position and monitored anesthesia care administered. He was then prepped and draped in the standard surgical fashion. The left vas was brought up to the midline raphae and local anesthetic placed under the skin and around the vas. Incision was then made in the midline raphae and a tenaculum was used to grasp the vas deferens and it was brought through the incision. The vasal sheath was then incised and the vas proper was dissected away from its investing tissue. A clip was placed distally in the clips were placed proximally. A 1 cm segment was then excised and the vasal lumen was then cauterized proximally and distally. The stasis achieved in the left vas dropped back into the left hemiscrotum. The right vas was then brought up to the midline incision and local anesthetic placed around the basal structure. The identical procedure was performed as on the left side. Vas brought back into the right hemiscrotum and hemostasis achieved. A 3-0 chromic in a horizontal mattress fashion was placed in the skin. A compression dressing applied. Patient tolerated the procedure well there was minimal blood loss. Condition: stable Disposition: same day Specimens:: Best segments were not sent Complications:: None
[2020-04-23 12:42] VITALS: TEMP 43
== END 2020-04-23 10:35 | disposition home or self-care (01) ==
LOC: OR 08:12
PROVIDERS: PCP Internal Medicine Adolescent Medicine; Visit Provider Urology
PROC: (CPT 55250; principal; 2020-04-23 10:00)
DX: Z30.2 Encounter for sterilization (principal); Z90.49 Acquired absence of other specified parts of digestive tract; Z72.0 Tobacco use; Z83.3 Family history of diabetes mellitus; Z82.49 Family history of ischemic heart disease and other diseases of the circulatory system; Z88.7 Allergy status to serum and vaccine; Z88.8 Allergy status to other drugs, medicaments and biological substances
CPT/HCPCS: 55250

== ENCOUNTER 2020-11-04 15:36 | Emergency (ER) | payer OTHER, SELFPAY ==
[2020-11-04 15:38] VITALS: BP 135/93; PULSE 63; RESP 20; TEMP 36.7; O2SAT 100; BMI 27.8
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
[2020-11-04 16:22] VITALS: BP 135/93; PULSE 63; RESP 20; TEMP 36.7; O2SAT 97
== END 2020-11-04 16:35 | disposition home or self-care (01) ==
PROVIDERS: Emergency Provider Emergency Medicine; PCP Internal Medicine Adolescent Medicine
DX: T20.16XA Burn of first degree of forehead and cheek, initial encounter (principal); W40.1XXA Explosion of explosive gases, initial encounter; Y92.017 Garden or yard in single-family (private) house as the place of occurrence of the external cause; F17.290 Nicotine dependence, other tobacco product, uncomplicated
CPT/HCPCS: 96372; 99281

== ENCOUNTER 2021-01-22 09:03 | Emergency (ER) | payer OTHER, SELFPAY ==
[2021-01-22 09:05] VITALS: BP 124/87; PULSE 119; RESP 22; TEMP 38.1; O2SAT 100; BMI 25.1
[2021-01-22 09:22] LABS: Adenovirus,PCR Not Detected (NotDetected); Bordetella Pertussis Not Detected (NotDetected); Chlamydophila Pneumoniae, PCR Not Detected (NotDetected); Coronavirus 229E Not Detected (NotDetected); Coronavirus NL63 Not Detected (NotDetected); Coronavirus OC43 Not Detected (NotDetected); Coronovirus HKU1,PCR Not Detected (NotDetected); Human Metapneumovirus Not Detected (NotDetected); Influenza A, PCR Not Detected (NotDetected); Influenza AH1, 2009 Not Detected (NotDetected); Influenza AH1, PCR Not Detected (NotDetected); Influenza AH3,PCR Not Detected (NotDetected); Influenza B, PCR Not Detected (NotDetected); Mycoplasma Pneumoniae, PCR Not Detected (NotDetected); Parainfluenza 1, PCR Not Detected (NotDetected); Parainfluenza 2, PCR Not Detected (NotDetected); Parainfluenza 3, PCR Not Detected (NotDetected); Parainfluenza 4, PCR Not Detected (NotDetected); Respiratory Syncytial Virus Not Detected (NotDetected); Rhinovirus/Enterovirus Not Detected (NotDetected)
[2021-01-22 09:28] LABS: UTC Strep Screen (Rapid) Positive (Negative)
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
[2021-01-22 09:53] VITALS: BP 124/87; PULSE 119; RESP 22; TEMP 38.1; O2SAT 100
[2021-01-22 10:58] LABS: Coronavirus 19, PCR Detected (NotDetected)
--- NOTE | 2021-01-22 10:59 | PC.NURSE ---
PT NOTIFIED OF POSITIVE COVID TEST RESULTS
== END 2021-01-22 09:56 | disposition home or self-care (01) ==
PROVIDERS: Emergency Provider Nurse Practitioner; PCP Internal Medicine Adolescent Medicine
DX: J02.0 Streptococcal pharyngitis (principal); Z87.891 Personal history of nicotine dependence; Z88.7 Allergy status to serum and vaccine
CPT/HCPCS: 87581; 87633; 87798; 87880; 99203; G0463

== ENCOUNTER 2021-01-24 15:57 | Emergency (ER) | payer OTHER, SELFPAY ==
[2021-01-24 15:59] VITALS: BP 130/73; PULSE 102; RESP 20; TEMP 38.2; O2SAT 96; BMI 25.8
--- NOTE | 2021-01-24 16:20 | XR_ITS ---
PROCEDURE INFORMATION: Exam: XR Chest Exam date and time: 01/24/2021 4:20 PM Age: 30 years old Clinical indication: Cough; Additional info: Cough, covid positive TECHNIQUE: Imaging protocol: XR of the chest. Views: 1 view. COMPARISON: CR CXR CHEST(2 VIEWS-NOT PORTABLE) 01/21/2016 11:08 AM FINDINGS: Lungs: Atelectatic and/or early infiltrative changes noted within the upper lobes bilaterally and right lower lobe. Pleural spaces: No pleural effusion. No pneumothorax. Heart/Mediastinum: Unremarkable. No cardiomegaly. Bones/joints: Unremarkable. IMPRESSION: Atelectatic and/or early infiltrative changes noted within the upper lobes bilaterally and right lower lobe.
[2021-01-24 16:28] LABS: Basophils % 0.7 % (0.1-2.0); Eosinophils % 0.1 % (0.1-12.0); Hematocrit 43.5 % (42.0-52.0); Hemoglobin 15.6 g/dL (14.1-18.0); Lymphocytes # 1.2 K/mm3 (0.7-4.5); Mean Corpuscular HGB Conc 35.9 g/dL (31.8-35.4); Mean Corpuscular Hemoglobin 31.9 pg (27.0-31.2); Mean Corpuscular Volume 88.8 fl (80-94); Mean Platelet Volume 8.6 fl (7.4-10.4); Monocytes # 0.1 K/mm3 (0.1-1.0); Monocytes % 2.5 % (1.7-9.3); Neutrophils % 74.7 % (37.0-80.0); Platelet Count 110 K/mm3 (142-424); Red Cell Distribution Width 12.8 % (11.5-17.5); White Blood Count 5.3 K/mm3 (4.8-10.8)
[2021-01-24 16:39] LABS: Chloride 102 mmol/L (98-107); Potassium 3.5 mmoL/L (3.5-5.1); Sodium 132 mmol/L (136-145)
[2021-01-24 16:42] LABS: Alanine Aminotransferase 31 U/L (12-78); Albumin Level 4.2 g/dl (3.5-5.0); Albumin/Globulin Ratio 1.4 (1.1-1.8); Alkaline Phosphatase 75 U/L (38-126); Anion Gap 16.5 mEq/L (5-15); Aspartate Amino Transferase 50 U/L (17-59); Blood Urea Nitrogen 15 mg/dl (9-20); Calcium 8.7 mg/dl (8.4-10.2); Carbon Dioxide 17 mmol/L (22.0-30.0); Creatinine Clearance Estimated 119 mL/min (50-200); Estimated Glomerular Filt Rate 87 ml/min (>60); GFR (African American) 105 ML/MIN (>60); Globulin 3.1 g/dL (1.3-3.2); Glucose 110 mg/dl (74-100); Total Protein,Serum 7.3 g/dl (6.3-8.2)
--- NOTE | 2021-01-24 17:18 | HMH.EDFEV ---
ED Disposition Clinical Impression: COVID Community acquired pneumonia Qualifiers: Laterality: right Lung location: lower lobe of lung Qualified Code(s): J18.9 - Pneumonia, unspecified organism Disposition: Home, Self-Care Condition on Discharge: Good Instructions: Pneumonia-Adult Prescriptions: Doxycycline Hyclate [Doxycycline 100mg Capsule] 100 mg PO Q12 10 Days #20 cap Transmission Status: Pending to [id number] Referrals: Redd Owens MD [Primary Care Provider] - - Critical Care Critical Care Time: No Attestation: On 01/24/21, the high probability of a clinically significant, sudden or life threatening deterioration of the following system(s) required my full and direct attention, intervention and personal management. The time I documented below is in addition to time spent performing reported procedures but includes the following listed in this critical care notation. Medical Decision Making - Medical Records Medical records reviewed: Yes: I reviewed the patient's medical records. - Nolan Inquiry Pt receiving controlled substance: No Vital Signs: 01/24/21 15:59 Temperature 100.8 F H Temperature Source Oral Pulse Rate [Right] 102 H Respiratory Rate 20 Blood Pressure [Right Arm] 130/73 Blood Pressure Mean [Right Arm] 92 02 Sat by Pulse Oximetry 96 Oxygen Delivery Method Room Air - Lab Data Lab Results 01/24/21 16:14: WBC 5.3, RBC 4.90, Hgb 15.6, Hct 43.5, MCV 88.8, MCH 31.9 H, MCHC 35.9 H, RDW 12.8, Plt Count 110 L, MPV 8.6, Neut % (Auto) 74.7, Lymph % (Auto) 22.0, [place] % (Auto) 2.5, Eos % (Auto) 0.1, Baso % (Auto) 0.7, Neut # (Auto) 4.0, Lymph # (Auto) 1.2, [place] # (Auto) 0.1, Eos # (Auto) 0.0, Baso # (Auto) 0.0 01/24/21 16:14: Sodium 132 L, Potassium 3.5, Chloride 102, Carbon Dioxide 17 L, Anion Gap 16.5 H, BUN 15, Creatinine 1.00, Estimated Creat Clear 119, Estimated GFR 87, Est GFR ( Amer) 105, Glucose 110 H, Calcium 8.7, Total Bilirubin 1.0, AST 50, ALT 31, Alkaline Phosphatase 75, Total Protein 7.3, Albumin 4.2, Globulin 3.1, Albumin/Globulin Ratio 1.4 Result diagrams: 01/24/21 16:14 01/24/21 16:14 Orders (Tests/Meds): ED MEDICATIONS Generic Name Dose Route Start Last Admin Trade Name Freq PRN Reason Stop Dose Admin Sodium Chloride 1,000 mls @ 999 mls/hr 01/24/21 16:30 01/24/21 16:41 Sod Chlor 0.9% 1000ml Bag IV 01/24/21 17:30 999 mls/hr .Q1H1M NATHALY Administration Discontinued Medications Generic Name Dose Route Start Last Admin Trade Name Freq PRN Reason Stop Dose Admin Dexamethasone Sodium Phosphate 10 mg 01/24/21 16:19 01/24/21 16:41 Dexamethasone 4mg/Ml 5ml Mdv IV 01/24/21 16:20 10 mg ONCE ONE Administration - Radiology Data #1 Image(s): Chest Image Reviewed: Yes I reviewed the patient's radiology results, Yes I reviewed the patient's radiology image, Yes I have reviewed radiologist's interpretation IMPRESSION: Atelectatic and/or early infiltrative changes noted within the upper lobes bilaterally and right lower lobe. - Reevaluation(s) Time: 17:23 Reevaluation #1: On reevaluation, patient is feeling better. Chest x-ray is consistent with viral pneumonia, however there is mild concern for atypical pneumonia. Patient be placed on doxycycline and is instructed to finish his amoxicillin. Patient was given strict return precautions. Did ambulate the patient and there is no desaturation or respiratory distress. Patient verbalized understanding. Medical Decision Narrative: 30-year-old male presented to the emergency department with some cough, weakness and fevers. Patient did have a recent diagnosis of coronavirus and Streptococcus. Currently on amoxicillin. Patient has no evidence of respiratory distress or impending respiratory failure. I do believe his symptoms are likely secondary to viral syndrome. Work-up will be initiated. Patient placed on continuous monitoring. Fever HPI - Genera
[2021-01-24 17:30] VITALS: BP 132/74; PULSE 85; RESP 22; TEMP 36.7; O2SAT 97
== END 2021-01-24 17:33 | disposition home or self-care (01) ==
PROVIDERS: Emergency Provider Emergency Medicine; PCP Internal Medicine Adolescent Medicine
DX: U07.1 COVID-19 (principal); J18.9 Pneumonia, unspecified organism
CPT/HCPCS: 71045; 80053; 85025; 96365; 99282

== ENCOUNTER 2021-01-29 21:13 | Inpatient (IN) | payer OTHER, SELFPAY ==
[2021-01-29 21:14] VITALS: BP 117/64; PULSE 115; RESP 24; TEMP 37.8; O2SAT 75; BMI 25.8
[2021-01-29 21:38] VITALS: BMI 25.8
--- NOTE | 2021-01-29 21:39 | XR_ITS ---
PROCEDURE INFORMATION: Exam: XR Chest Exam date and time: 01/29/2021 9:39 PM Age: 30 years old Clinical indication: Shortness of breath; Patient HX: Covid PT short of breath; Additional info: SOA TECHNIQUE: Imaging protocol: XR of the chest. Views: 1 view. COMPARISON: CR XR CHEST PORTABLE 01/24/2021 4:31 PM FINDINGS: Lungs: Patchy bilateral airspace disease Pleural spaces: Unremarkable. No pleural effusion. No pneumothorax. Heart/Mediastinum: Unremarkable. No cardiomegaly. Bones/joints: Unremarkable. IMPRESSION: Mild to moderate patchy bilateral airspace disease compatible with infection
--- NOTE | 2021-01-29 21:53 | ECG_ITS ---
APPROVED REPORT Exam: Resting ECG HR:119 bpm ECG Measurements Heart Rate 119 AXES WI 136 P 16 QRSd 92 QRS 22 QT 332 T 31 QTc 467 Conclusion Sinus tachycardia Otherwise normal ECG Electronically signed by : Redd Owens, 01/30/2021 21:02:10
[2021-01-29 22:00] VITALS: BP 114/76; PULSE 114; RESP 24; O2SAT 91
--- NOTE | 2021-01-29 22:03 | CT_ITS ---
PROCEDURE INFORMATION: Exam: CTA Chest With Contrast Exam date and time: 01/29/2021 10:03 PM Age: 30 years old Clinical indication: Shortness of breath; Patient HX: SOB covid positive low o2 sats RO pe; Additional info: SOA TECHNIQUE: Imaging protocol: Computed tomographic angiography of the chest with contrast. 3D rendering (Not supervised by radiologist): MIP and/or 3D reconstructed images were created by the technologist. Radiation optimization: All CT scans at this facility use at least one of these dose optimization techniques: automated exposure control; mA and/or kV adjustment per patient size (includes targeted exams where dose is matched to clinical indication); or iterative reconstruction. Contrast material: ISOVUE 370; Contrast volume: 70 ml; Contrast route: INTRAVENOUS (IV); COMPARISON: CR XR CHEST PORTABLE 01/29/2021 9:45 PM FINDINGS: Pulmonary arteries: Normal. No pulmonary emboli. Aorta: Unremarkable. No aortic aneurysm. No aortic dissection. Lungs: Several subsegmental filling defects are seen. There is 1 in the right upper lobe on image 99 of series 2 another is seen in the left lower lobe on image 225 of series 2 and sagittal image 63 of series 602. None; Moderate diffuse ground-glass opacities are seen with some sparing primarily in the periphery and in the bases. There are some more focal nodular opacities seen that are probably related. A calcified nodule is seen in the right lower lobe. Pleural spaces: Trace bilateral effusions Heart: Unremarkable. No cardiomegaly. No pericardial effusion. Lymph nodes: A few mildly prominent mediastinal lymph nodes are seen. Some are calcified. Bones/joints: Unremarkable. No acute fracture. Soft tissues: Unremarkable. IMPRESSION: 1. A few subsegmental PE are seen which may be acute. 2. Moderate diffuse ground-glass opacities most compatible with infection. Edema less likely. Case discussed with Dr. Quezada over the phone at 6:52 p.m.
[2021-01-29 22:22] LABS: Chloride 100 mmol/L (98-107)
[2021-01-29 22:23] LABS: Basophils # 0.1 K/mm3 (0-0.2); Basophils % 0.6 % (0.1-2.0); Eosinophils % 0.1 % (0.1-12.0); Hematocrit 41.4 % (42.0-52.0); Hemoglobin 14.9 g/dL (14.1-18.0); Lymphocytes # 1.2 K/mm3 (0.7-4.5); Lymphocytes % 10.2 % (10-50); Mean Corpuscular Hemoglobin 31.8 pg (27.0-31.2); Mean Corpuscular Volume 88.2 fl (80-94); Monocytes # 0.3 K/mm3 (0.1-1.0); Monocytes % 2.6 % (1.7-9.3); Neutrophils # 9.7 K/mm3 (1.8-7.8); Neutrophils % 86.4 % (37.0-80.0); Platelet Count 274 K/mm3 (142-424); Potassium 3.2 mmoL/L (3.5-5.1); Red Blood Count 4.69 M/mm3 (4.60-6.20); Red Cell Distribution Width 12.8 % (11.5-17.5); Sodium 132 mmol/L (136-145); White Blood Count 11.2 K/mm3 (4.8-10.8)
[2021-01-29 22:24] LABS: VBG HCO3 20.5 mmol/L (23-30); VBG Oxygen Saturation 96.4 % (50-70); VBG PCO2 28.2 mmol/L (35-51); VBG PH 7.48 mmol/L (7.31-7.41); VBG PO2 81.9 mmol/L (28-40); VBG Total CO2 21.3 mmol/L (23-27)
[2021-01-29 22:25] LABS: Alanine Aminotransferase 38 U/L (12-78); Alkaline Phosphatase 118 U/L (38-126); Anion Gap 13.2 mEq/L (5-15); Aspartate Amino Transferase 67 U/L (17-59); Bilirubin,Total 0.9 mg/dl (0.2-1.3); Blood Urea Nitrogen 12 mg/dl (9-20); Carbon Dioxide 22 mmol/L (22.0-30.0); Creatinine Clearance Estimated 145 mL/min (50-200); Estimated Glomerular Filt Rate 112 ml/min (>60); GFR (African American) 136 ML/MIN (>60); Lactic Acid 1.7 mmol/L (0.7-2.1)
[2021-01-29 22:26] LABS: Albumin Level 3.4 g/dl (3.5-5.0); Albumin/Globulin Ratio 1.1 (1.1-1.8); Calcium 8.4 mg/dl (8.4-10.2); Globulin 3.2 g/dL (1.3-3.2); Glucose 123 mg/dl (74-100); Total Protein,Serum 6.6 g/dl (6.3-8.2)
[2021-01-29 22:32] LABS: MANUAL DIFFERENTIAL MANUAL DIFFERENTIAL (MANUAL DIFF)
--- NOTE | 2021-01-29 22:53 | PC.NURSE ---
Dr. Quezada s/w amandaad at this time
--- NOTE | 2021-01-29 22:58 | PC.NURSE ---
Heparin Gtt per [facility]
[2021-01-29 23:00] VITALS: BP 131/72; PULSE 127; RESP 24; O2SAT 92
[2021-01-29 23:18] LABS: Activated Partial Thrombo Time 25.6 seconds (22.8-30.6); Prothrombin Time 11.6 seconds (10.1-12.5)
[2021-01-29 23:25] LABS: INR 0.98 (0.9-1.1)
--- NOTE | 2021-01-29 23:28 | PC.NURSE ---
DR. MAURIZIO WISE FOR ED
[2021-01-29 23:30] VITALS: BP 127/76; PULSE 105; RESP 18; O2SAT 93
[2021-01-29 23:30] LABS: Lymphocytes % 14 % (10-50); Monocytes % 1 % (2-9); Neutrophils % 85 % (42-76); Total Cells Counted 100
[2021-01-29 23:31] LABS: Platelet Estimate Normal; RBC Morphology Normal
[2021-01-30] VITALS (13 sets, daily range): BP systolic 107–120; BP diastolic 68–79; PULSE 76–98; RESP 14–30; TEMP 36.6–37.4; O2SAT 88–92; BMI 25.7
--- NOTE | 2021-01-30 00:23 | HMH.EDGENADL ---
ED Disposition Clinical Impression: COVID-19 Pulmonary embolism Qualifiers: Pulmonary embolism type: multiple subsegmental (without acute cor pulmonale) Qualified Code(s): I26.94 - Multiple subsegmental pulmonary emboli without acute cor pulmonale Disposition: Admitted As Inpatient Condition on Discharge: Serious - Critical Care Critical Care Time: No Attestation: On 01/29/21, the high probability of a clinically significant, sudden or life threatening deterioration of the following system(s) required my full and direct attention, intervention and personal management. The time I documented below is in addition to time spent performing reported procedures but includes the following listed in this critical care notation. Medical Decision Making - Nolan Inquiry Pt receiving controlled substance: No Vital Signs: 01/29/21 21:14 01/29/21 23:30 01/30/21 00:00 Temperature 100.1 F H Temperature Source Oral Pulse Rate 105 H 98 H Pulse Rate [Right] 115 H Respiratory Rate 24 18 14 Blood Pressure 127/76 119/72 Blood Pressure [Right Arm] 117/64 Blood Pressure Mean 86 86 Blood Pressure Mean [Right Arm] 81 02 Sat by Pulse Oximetry 75 L 93 L 92 L Oxygen Delivery Method Room Air Vapotherm Vapotherm - Lab Data Lab Results 01/29/21 22:00: WBC 11.2 H, RBC 4.69, Hgb 14.9, Hct 41.4 L, MCV 88.2, MCH 31.8 H, MCHC 36.0 H, RDW 12.8, Plt Count 274, MPV 8.0, Neut % (Auto) 86.4 H, Lymph % (Auto) 10.2, [place] % (Auto) 2.6, Eos % (Auto) 0.1, Baso % (Auto) 0.6, Neut # (Auto) 9.7 H, Lymph # (Auto) 1.2, [place] # (Auto) 0.3, Eos # (Auto) 0.0, Baso # (Auto) 0.1, Total Counted 100, Neutrophils % (Manual) 85 H, Lymphocytes % (Manual) 14, Monocytes % (Manual) 1 L, Platelet Estimate Normal, RBC Morphology Normal 01/29/21 22:00: Sodium 132 L, Potassium 3.2 L, Chloride 100, Carbon Dioxide 22, Anion Gap 13.2, BUN 12, Creatinine 0.80, Estimated Creat Clear 145, Estimated GFR 112, Est GFR ( Amer) 136, Glucose 123 H, Calcium 8.4, Total Bilirubin 0.9, AST 67 H, ALT 38, Alkaline Phosphatase 118, Total Protein 6.6, Albumin 3.4 L, Globulin 3.2, Albumin/Globulin Ratio 1.1 01/29/21 22:00: Lactate 1.7 01/29/21 22:00: PT 11.6, INR 0.98, APTT 25.6 01/29/21 22:22: VBG pH 7.48 H, VBG pCO2 28.2 L, VBG pO2 81.9 H, VBG HCO3 20.5 L, VBG Total CO2 21.3 L, VBG O2 Saturation 96.4 H, VBG Base Excess -3.0 L Result diagrams: 01/29/21 22:00 01/29/21 22:00 Orders (Tests/Meds): ED MEDICATIONS Generic Name Dose Route Start Last Admin Trade Name Freq PRN Reason Stop Dose Admin Lactated Ringer's 1,000 mls @ 999 mls/hr 01/29/21 22:15 01/29/21 22:09 Lactated Ringer's 1000 Ml Bag IV 01/29/21 23:15 999 mls/hr .Q1H1M NATHALY Administration Heparin Sodium/Dextrose 500 mls @ 28 mls/hr 01/29/21 23:00 01/29/21 23:06 Heparin 25,000 Units In D5w 500ml Premix IV 02/28/21 22:59 28 mls/hr .[id number] NATHALY Administration 1,400 UNITS/HR Miscellaneous 1 each 01/29/21 23:00 Heparin Drip Consult * 02/28/21 22:59 CONSULT PHARMACY NATHALY Discontinued Medications Generic Name Dose Route Start Last Admin Trade Name Freq PRN Reason Stop Dose Admin Acetaminophen 1,000 mg 01/29/21 22:01 01/29/21 22:09 Acetaminophen 500mg Tab PO 01/29/21 22:02 1,000 mg ONCE ONE Administration Dexamethasone Sodium Phosphate 10 mg 01/29/21 22:01 01/29/21 22:09 Dexamethasone 4mg/Ml 5ml Mdv IV 01/29/21 22:02 10 mg ONCE ONE Administration Heparin Sodium (Porcine) 6,000 unit 01/29/21 22:58 01/29/21 23:06 Heparin Sodium 5,000 Unit/Ml Vial IV 01/29/21 22:59 6,000 unit ONCE ONE Administration Iopamidol 70 ml 01/29/21 22:19 01/29/21 22:20 Iopamidol-370 (76%);100ml Bottle IV 01/29/21 22:20 70 ml ONCE ONE Administration Ketorolac Tromethamine 30 mg 01/29/21 22:01 01/29/21 22:08 Ketorolac 30mg/Ml Vial IV 01/29/21 22:02 30 mg ONCE ONE Administration Sodium Chloride 40 ml 01/29/21 22:19 01/29/21 22:20 0.9
[2021-01-30 00:49] LABS: Activated Partial Thrombo Time 134.7 seconds (22.8-30.6)
--- NOTE | 2021-01-30 01:19 | PC.NURSE ---
Addendum entered by Bebe Riddle RN 01/30/21 01:21: SPOKE WITH CYNTHIA AT 0102 Original Note: SPOKE WITH CYNTHIA AT [facility]. SHE REPORTED A PTT: 134 AND STATED TO DECREASE HEPARIN GTT TO 1100 UNITS/HR (22ML/HR). REDRAW PTT IN 2 HOURS.
[2021-01-30 04:00] LABS: Activated Partial Thrombo Time 82.6 seconds (22.8-30.6)
--- NOTE | 2021-01-30 04:47 | PC.NURSE ---
heparin drip rate and lab draws being managed by pharmacy. titrated accordingly
--- NOTE | 2021-01-30 07:01 | CA_ITS ---
APPROVED REPORT EXAM: Comprehensive 2D, Doppler, and color-flow Echocardiogram Pharmacy Informatics Manager: Marta Gillette, RCS, RVS Ht: 5 ft 8 in Wt: 170lbs BSA: 1.91 BP: 108/79 mmHg Indications: Covid, PE, SOA 2D Dimensions IVSd 1.08 cm LVEF (Visual) 46.40 % PWd 0.80 cm LA Volume 31.50 mL LVDd 4.51 cm LA Volume Index 16.57 mL/m2 (M/F) 16-34 LVDs 3.47 cm Aortic Root 3.32 cm Left Atrium 3.44 cm LVOT 2.11 cm (M/F) 1.5-2.5 M-Mode Dimensions LA Diam 3.87 cm (1.9-4.0) Ao Diam 3.36 cm (2.0-3.7) EPSs 0.44 cm TAPSE 1.61 (<1.7) LV Diastology E Decel Time 182.00 (160-240 msec) E/A Ratio 1.04 MED E' 11.40 (< 7 cm/sec) MED A' 12.60 cm/s E'/MED E' Ratio 6.24 (>14) LAT E' 12.60 (<10 cm/sec) LAT A' 7.00 cm/s E/LAT E' Ratio 5.64 (>14) Aortic Valve LVOT Max 94.00 (70-110 cm/s) LVOT VTI 17.69 cm AoV Peak Ehsan. 118.00 (50-130 cm/s) AO Peak GR. 5.60 mmHg AO Mean GR. 2.80 (<5 mmHg) AO VTI 20.06 (18-25 cm) ANNMARIE (VTI) 3.08 (2.5-4.5 cm2) Mitral Valve MV E Max Ehsan. 71.00 (40-130 cm/s) MV A Velocity 69.00 (40-130 cm/s) E/A Ratio 1.04 MV Decel. Time 182.00 (160-240 ms) MV PHT 53.00 ms Pulmonary Valve PV Peak Velocity 87.00 (50-150 cm/s) Tricuspid Valve TR P. Velocity 227.00 cm/s RAP Estimate 15.00 mmHg RVSP 35.70 mmHg Left Ventricle Left atrium is normal size, left ventricle is normal size, there is no concentric left ventricular hypertrophy, visually estimated ejection fraction 55% with no regional wall motion abnormality, diastolic parameters are within normal range. Right Ventricle Right atrium and right ventricle are normal size and contractility. Aortic Valve Aortic valve is grossly normal, there is no aortic stenosis or aortic insufficiency. Mitral Valve Mitral valve is grossly normal, there is trace mitral regurgitation. Tricuspid Valve Tricuspid valve grossly normal, there is trace tricuspid regurgitation, tricuspid regurgitation jet velocity is inadequate for calculation of the right ventricular systolic pressure. Pulmonic Valve Pulmonic valve is poorly visualized. Great Vessels Aortic root is normal size. Pericardium No significant pericardial effusion noted. Conclusion 1. Normal left ventricular size, preserved left ventricular systolic function, visually estimated ejection fraction 55% with no regional wall motion abnormality, diastolic parameters are within normal range. 2. Trace mitral and tricuspid regurgitation. 3. No significant pericardial effusion noted. Electronically signed by : Asad Bates, 02/01/2021 10:07:49
--- NOTE | 2021-01-30 07:03 | HMH.HP ---
*Admission Date: 01/30/21 *Chief complaint: Cough and shortness of air *History of present illness: Patient is a 30-year-old male who reports 14 days of fever along with diarrhea, shortness of breath, and decreased p.o. intake. He reports on the this found to be Covid positive. On he was diagnosed with pneumonia and started on amoxicillin and doxycycline. He reports for the last 3 days his symptoms have worsened and he has been unable to get out of bed and he complains of inability to tolerate p.o., diarrhea, continued fever, shortness of breath. He has been taking Tylenol and ibuprofen with no improvement. On arrival to the emergency department he is satting 48% on room air with increased work of breathing. Ports his and kids were sick as well however they got over their symptoms quickly. He does report that he has also coughed up small amounts of blood Above note per ER physician. I saw patient in the office 3 days ago, O2 sats were normal, and he had a slight cough and shortness of air but is certainly escalated over the last 3 days. Reviewed notes, CTA reports and chest x-ray reports. [facility] History I have reviewed the patient's past medical history: Yes Medical History: Denies:: Cancer, Diabetes Mellitus Type 1, Diabetes Mellitus Type 2, MRSA, Seizures *Have you ever received a pneumonia vaccine?: No *Have you received a flu vaccine this season?: Yes Other Medical History: Denies: Blood Transfusion Reaction Other Surgeries: Yes: No Previous Surgery, Appendectomy Amputation: No Fractures: No - *Social History Smoking Status: Former smoker Tobacco Type: smokeless tobacco # Packs/Day (cigarettes): 1 Alcohol Intake: current Alcohol Intake Frequency:: holidays/special occasions only Substance Use Type: denies use *Occupational Status:: employed Housing: house Household Members: spouse *Travel in the last 8 weeks: Inside the [place] Family Hx:: No significant family history Review of Systems - Review of Systems Review of systems:: pertinent systems reviewed and negative unless documented below Positive for anorexia, myalgias, extreme fatigue, dyspnea, negative for hemoptysis, anginal chest pain, distal extremity swelling or rash, otherwise 10 point review of systems negative Meds Home Medications Medication Instructions Recorded Confirmed Type No Known Home Medications 01/29/21 01/29/21 History Allergies Allergy/AdvReac Type Severity Reaction Status Date / Time Pertussis Vaccines Allergy Mild Verified 01/30/21 02:44 [PERTUSSIS VACCINES] TOPICAL STEROIDS Allergy Unknown Uncoded 01/04/21 09:42 Exam Vital signs and Labs for Last 24 Hours: Temp Pulse Resp BP Pulse Ox 97.8 F 78 16 108/79 L 92 L 01/30/21 04:00 01/30/21 04:00 01/30/21 04:00 01/30/21 04:00 01/30/21 04:00 Laboratory Results - last 24 hr 01/29/21 22:00: WBC 11.2 H, RBC 4.69, Hgb 14.9, Hct 41.4 L, MCV 88.2, MCH 31.8 H, MCHC 36.0 H, RDW 12.8, Plt Count 274, MPV 8.0, Neut % (Auto) 86.4 H, Lymph % (Auto) 10.2, [place] % (Auto) 2.6, Eos % (Auto) 0.1, Baso % (Auto) 0.6, Neut # (Auto) 9.7 H, Lymph # (Auto) 1.2, [place] # (Auto) 0.3, Eos # (Auto) 0.0, Baso # (Auto) 0.1, Total Counted 100, Neutrophils % (Manual) 85 H, Lymphocytes % (Manual) 14, Monocytes % (Manual) 1 L, Platelet Estimate Normal, RBC Morphology Normal 01/29/21 22:00: Sodium 132 L, Potassium 3.2 L, Chloride 100, Carbon Dioxide 22, Anion Gap 13.2, BUN 12, Creatinine 0.80, Estimated Creat Clear 145, Estimated GFR 112, Est GFR ( Amer) 136, Glucose 123 H, Calcium 8.4, Total Bilirubin 0.9, AST 67 H, ALT 38, Alkaline Phosphatase 118, Total Protein 6.6, Albumin 3.4 L, Globulin 3.2, Albumin/Globulin Ratio 1.1 01/29/21 22:00: Lactate 1.7 01/29/21 22:00: PT 11.6, INR 0.98, APTT 25.6 01/29/21 22:22: VBG pH 7.48 H, VBG pCO2 28.2 L, VBG pO2 81.9 H, VBG HCO3 20.5 L, VBG Total CO2 21.3 L, VBG O2 Saturation 96.4 H, VBG Base Excess -3.0 L 01/30/21 00:00: APTT 134
--- NOTE | 2021-01-30 08:03 | P.CONPHA_ITS ---
[facility] Pharmacy VTE Monitoring - Patient Demographics Admission date: 01/29/21 Report Date: 01/30/21 Time: 08:03 Allergies/Adverse Reactions: Patient Allergies Pertussis Vaccines [PERTUSSIS VACCINES] Allergy (Mild, Verified 01/30/21 02:44) TOPICAL STEROIDS Allergy (Unknown, Uncoded 01/04/21 09:42) Height: 1.73 m Weight: 77.111 kg Patient Problems: Current Active Problems Pulmonary embolism (Acute) COVID-19 (Acute) Pneumonia due to COVID-19 virus (Acute) - VTE Risk Labs: VTE Related Lab Results Hgb 14.9 g/dL (14.1-18.0) 01/29/21 22:00 Hct 41.4 % (42.0-52.0) L 01/29/21 22:00 Plt Count 274 K/mm3 (142-424) 01/29/21 22:00 PT 11.6 seconds (10.1-12.5) 01/29/21 22:00 INR 0.98 (0.9-1.1) 01/29/21 22:00 APTT 82.6 seconds (22.8-30.6) H* D 01/30/21 03:25 BUN 12 mg/dl (9-20) 01/29/21 22:00 Creatinine 0.80 mg/dl (0.66-1.25) 01/29/21 22:00 Estimated Creat Clear 145 mL/min (50-200) 01/29/21 22:00 Was VTE Risk Assessment Performed: Yes VTE Score: 0 VTE Risk Level: Very Low Risk Clinical Trial Participant: No - Prophylaxis VTE Prophylaxis Ordered?: Yes Types of VTE Prophylaxis: Pharmacological Pharmacologic Type: Heparin (AND XARELTO)
[2021-01-30 08:36] LABS: Activated Partial Thrombo Time 51.6 seconds (22.8-30.6)
[2021-01-30 10:32] LABS: Influenza A, PCR Not Detected (NotDetected); Influenza B, PCR Not Detected (NotDetected)
[2021-01-30 11:12] LABS: Coronavirus 19, PCR Detected (NotDetected)
--- NOTE | 2021-01-30 11:12 | PC.NURSE ---
Received report from [facility] of critical lab of positive Covid result at this time. Pts name and birthday verified over phone.
[2021-01-30 11:54] LABS: Activated Partial Thrombo Time 46.4 seconds (22.8-30.6)
--- NOTE | 2021-01-30 12:11 | PC.NURSE ---
Heparin gtt increased to 1150units/hr (23mL/hr) per Saba Levy.
--- NOTE | 2021-01-30 15:01 | HMH.PHAHEP ---
[facility] Pharmacy Heparin Dosing - Demographic Data Admission date:: 01/29/21 Date: 01/30/21 Time: 15:02 Allergies/Adverse Reactions: Allergies Allergy/AdvReac Type Severity Reaction Status Date / Time Pertussis Vaccines Allergy Mild Verified 01/30/21 02:44 [PERTUSSIS VACCINES] TOPICAL STEROIDS Allergy Unknown Uncoded 01/04/21 09:42 Height: 1.73 m Weight: 77.11 kg - Indication Medication therapy:: Heparin Patient Problems: Current Active Problems Pulmonary embolism (Acute) COVID-19 (Acute) Pneumonia due to COVID-19 virus (Acute) CVA?: No Bleeding problem?: No Kidney disease?: No MO?: No Desired PTT range:: 50-70 seconds - Labs Anticoagulation Lab Results:: 01/29/21 22:00 Hgb 14.9 Hct 41.4 L Plt Count 274 - Monitoring Dose Monitor 1 Date: 01/29/21 Time: 20:00 PTT Result:: 25.6 Infusion Rate:: HEPARIN 1400 UNITS/HR (28 ML/HR) BOLUS OF 6000 UNITS. Dose Monitor 2 Date: 01/30/21 Time: 00:01 PTT Result:: 134.7 Infusion Rate:: DECREASED TO HEPARIN 1100 UNITS/HR (22 ML/HR) Dose Monitor 3 Date: 01/30/21 Time: 03:25 PTT Result:: 82.6 Infusion Rate:: DECREASED DOSE TO HEPARIN 1000 UNITS/HR (20 ML/HR) Dose Monitor 4 Date: 01/30/21 Time: 07:11 PTT Result:: 51.6 Infusion Rate:: CONTINUE WITH HEPARIN 1000 UNITS/HR (20 ML/HR) Dose Monitor 5 Date: 01/30/21 Time: 11:00 PTT Result:: 46.4 Infusion Rate:: INCREASED DOSE TO HEPARIN 1150 UNITS/HR (23 ML/HR) Dose Monitor 6 Date: 01/30/21 Time: 16:00 PTT Result:: 48.2 Infusion Rate:: CONTINUE WITH HEPARIN 1150 UNITS/HR (23 ML/HR). MD Giraldo/Marely AT 1930. CURRENTLY TAKING XARELTO 15 MG BID WELL. - Core Measures Is INR > or = 2 at discharge?: No Most Recent Labs:: Laboratory Results - last 24 hr 01/29/21 22:00: WBC 11.2 H, RBC 4.69, Hgb 14.9, Hct 41.4 L, MCV 88.2, MCH 31.8 H, MCHC 36.0 H, RDW 12.8, Plt Count 274, MPV 8.0, Neut % (Auto) 86.4 H, Lymph % (Auto) 10.2, [place] % (Auto) 2.6, Eos % (Auto) 0.1, Baso % (Auto) 0.6, Neut # (Auto) 9.7 H, Lymph # (Auto) 1.2, [place] # (Auto) 0.3, Eos # (Auto) 0.0, Baso # (Auto) 0.1, Total Counted 100, Neutrophils % (Manual) 85 H, Lymphocytes % (Manual) 14, Monocytes % (Manual) 1 L, Platelet Estimate Normal, RBC Morphology Normal 01/29/21 22:00: Sodium 132 L, Potassium 3.2 L, Chloride 100, Carbon Dioxide 22, Anion Gap 13.2, BUN 12, Creatinine 0.80, Estimated Creat Clear 145, Estimated GFR 112, Est GFR ( Amer) 136, Glucose 123 H, Calcium 8.4, Total Bilirubin 0.9, AST 67 H, ALT 38, Alkaline Phosphatase 118, Total Protein 6.6, Albumin 3.4 L, Globulin 3.2, Albumin/Globulin Ratio 1.1 01/29/21 22:00: Lactate 1.7 01/29/21 22:00: PT 11.6, INR 0.98, APTT 25.6 01/29/21 22:22: VBG pH 7.48 H, VBG pCO2 28.2 L, VBG pO2 81.9 H, VBG HCO3 20.5 L, VBG Total CO2 21.3 L, VBG O2 Saturation 96.4 H, VBG Base Excess -3.0 L 01/30/21 00:00: APTT 134.7 H* D 01/30/21 03:25: APTT 82.6 H* D 01/30/21 07:11: APTT 51.6 H* D 01/30/21 10:24: SARS-CoV-2 (PCR) Detected A, Influenza A Untype (PCR) Not detected, Influenza Type B (PCR) Not detected 01/30/21 11:00: APTT 46.4 H D If INR was < than 2.0 why was therapy stopped?: XARELTO Were Heparin and Warfarin started on the same day?: No If not, why?: XARELTO
[2021-01-30 15:45] LABS: Activated Partial Thrombo Time 48.2 seconds (22.8-30.6)
--- NOTE | 2021-01-30 16:58 | PC.NURSE ---
Pt notified of need of sputum specimen. Specimen cup left at bedside.
--- NOTE | 2021-01-30 16:59 | PC.NURSE ---
Heparin gtt increased to 1300units/hr per Saba Levy.
--- NOTE | 2021-01-30 18:56 | PC.NURSE ---
Pt A+Ox4. Pt has been pleasant t/o shift. Pt has tolerated 30 L vapotherm well. Pt has Heparin drip at 23 ml/hr into right FA. VSS. Call light within reach. Will continue to monitor.
[2021-01-31] VITALS (13 sets, daily range): BP systolic 116–131; BP diastolic 68–83; PULSE 50–94; RESP 17–32; TEMP 36.6–36.9; O2SAT 89–96
--- NOTE | 2021-01-31 00:37 | PC.NURSE ---
0030: SPOKE WITH Claudia AMADO AND INFORMED HER THAT PATIENT'S SATS HAVE DROPPED LOW AT 84%. CHECKED ON PATIENT AND HE WAS SLEEPING SOUNDLY. PATIENT IS A MOUTH BREATHER. I WOKE PATIENT UP AND INSTRUCTED HIM TO TAKE SOME DEEP BREATHS. I INFORMED HER THAT ADJUSTMENTS MAY HAVE TO BE MADE TO VAPOTHERM IF HE KEEPS DROPPING AND SUSTAINS LOW O2 SAT.
--- NOTE | 2021-01-31 09:20 | HMH.ACPN2 ---
Internal Medicine - PN: Subj *Date: 01/31/21 *Time: 09:20 Interval history: Patient had a good night, slept well, a little bit better appetite. Vapotherm settings remain about the same, patient feels like he is breathing somewhat easily. Exam Vital signs and Labs for Last 24 Hours: Temp Pulse Resp BP Pulse Ox 98.3 F 75 24 116/68 95 01/31/21 08:00 01/31/21 08:00 01/31/21 08:00 01/31/21 08:00 01/31/21 08:00 Laboratory Results - last 24 hr 01/30/21 10:24: SARS-CoV-2 (PCR) Detected A, Influenza A Untype (PCR) Not detected, Influenza Type B (PCR) Not detected 01/30/21 11:00: APTT 46.4 H D 01/30/21 15:15: APTT 48.2 H I & O for Last 24 hours: Intake & Output 01/28/21 01/29/21 01/30/21 01/31/21 11:59 11:59 11:59 11:59 Intake Total 1250 / 1250 2640 / 2640 Output Total 900 / 900 1500 / 1500 Balance 350 / 350 1140 / 1140 Weight 170 lb Microbiology Reports for the Last 24 Hours: Microbiology 01/30/21 17:04 Sputum - Expectorated Sputum Gram Stain - Final 01/30/21 17:04 Sputum - Expectorated Sputum Sputum Culture - Preliminary Narrative: Alert, pleasant, oriented. Vital signs other than O2 saturations are normal. Lungs have good air movement, minimal expiratory rhonchi, heart rate regular. No edema noted. No rash noted. Abdomen soft. Neurologically intact Assessment and Plan (1) Pneumonia due to COVID-19 virus Status: Acute Category: Medical Code(s): U07.1 - COVID-19; J12.82 - Pneumonia due to coronavirus disease 2019 (2) COVID-19 Status: Acute Category: Medical Code(s): U07.1 - COVID-19 (3) Pulmonary embolism Status: Acute Qualifiers: Pulmonary embolism type: multiple subsegmental (without acute cor pulmonale) Qualified Code(s): I26.94 - Multiple subsegmental pulmonary emboli without acute cor pulmonale Category: Medical Code(s): I26.99 - Other pulmonary embolism without acute cor pulmonale - Assessment and plan all Dx Assessment and Plan for all problems:: Remains on anticoagulation therapy. Remains on IV steroids, wean oxygen today. When patient is on nasal cannula may be discharged home.
--- NOTE | 2021-01-31 19:02 | PC.NURSE ---
RT (Charito) increased Vapotherm back to 40L/100% secondary to O2 sat 85-86% on 35L/80%. Encouraged prone position as much as possible. Pt agreeable to this. O2 sat now 93% o 40L/100% and in prone position.
[2021-02-01] VITALS (11 sets, daily range): BP systolic 121–129; BP diastolic 76–83; PULSE 50–82; RESP 18–24; TEMP 36.5–37.2; O2SAT 90–98
[2021-02-01 06:15] LABS: Basophils # 0.1 K/mm3 (0-0.2); Basophils % 0.4 % (0.1-2.0); Hematocrit 36.5 % (42.0-52.0); Hemoglobin 13.1 g/dL (14.1-18.0); Lymphocytes # 0.9 K/mm3 (0.7-4.5); Lymphocytes % 5.7 % (10-50); Mean Corpuscular HGB Conc 35.9 g/dL (31.8-35.4); Mean Corpuscular Hemoglobin 32.5 pg (27.0-31.2); Mean Corpuscular Volume 90.4 fl (80-94); Mean Platelet Volume 8.8 fl (7.4-10.4); Monocytes # 0.4 K/mm3 (0.1-1.0); Monocytes % 2.5 % (1.7-9.3); Neutrophils # 14.6 K/mm3 (1.8-7.8); Neutrophils % 91.3 % (37.0-80.0); Platelet Count 174 K/mm3 (142-424); Red Blood Count 4.04 M/mm3 (4.60-6.20); Red Cell Distribution Width 12.8 % (11.5-17.5)
[2021-02-01 06:16] LABS: Alanine Aminotransferase 47 U/L (12-78); Albumin Level 2.5 g/dl (3.5-5.0); Albumin/Globulin Ratio 0.9 (1.1-1.8); Alkaline Phosphatase 89 U/L (38-126); Anion Gap 8.6 mEq/L (5-15); Aspartate Amino Transferase 50 U/L (17-59); Bilirubin,Total 0.7 mg/dl (0.2-1.3); Blood Urea Nitrogen 17 mg/dl (9-20); Calcium 7.7 mg/dl (8.4-10.2); Carbon Dioxide 27 mmol/L (22.0-30.0); Chloride 104 mmol/L (98-107); Creatinine Clearance Estimated 165 mL/min (50-200); Estimated Glomerular Filt Rate 131 ml/min (>60); GFR (African American) 158 ML/MIN (>60); Globulin 2.8 g/dL (1.3-3.2); Glucose 110 mg/dl (74-100); Potassium 3.6 mmoL/L (3.5-5.1); Sodium 136 mmol/L (136-145); Total Protein,Serum 5.3 g/dl (6.3-8.2)
[2021-02-01 06:20] LABS: MANUAL DIFFERENTIAL MANUAL DIFFERENTIAL (MANUAL DIFF)
[2021-02-01 08:01] LABS: Lymphocytes % 14 % (10-50); Monocytes % 6 % (2-9); Neutrophils % 80 % (42-76); Total Cells Counted 100
[2021-02-01 08:02] LABS: Platelet Estimate Normal; RBC Morphology Normal
--- NOTE | 2021-02-01 10:13 | HMH.ACPN2 ---
Internal Medicine - PN: Subj *Date: 02/01/21 *Time: 10:13 Interval history: Patient had a good night, slept well, a little bit better appetite. Vapotherm settings decreased this morning, tolerating 70% O2. He reports feeling somewhat better. Breathing more easily, cough productive and clearing sputum better. Afebrile, no N/V/D. Exam Vital signs and Labs for Last 24 Hours: Temp Pulse Resp BP Pulse Ox 98.1 F 75 18 121/76 98 02/01/21 08:30 02/01/21 08:30 02/01/21 08:30 02/01/21 08:30 02/01/21 08:48 Laboratory Results - last 24 hr 02/01/21 05:45: WBC 16.0 H D, RBC 4.04 L, Hgb 13.1 L, Hct 36.5 L, MCV 90.4, MCH 32.5 H, MCHC 35.9 H, RDW 12.8, Plt Count 174 D, MPV 8.8, Neut % (Auto) 91.3 H, Lymph % (Auto) 5.7 L, [place] % (Auto) 2.5, Eos % (Auto) 0.0 L, Baso % (Auto) 0.4, Neut # (Auto) 14.6 H, Lymph # (Auto) 0.9, [place] # (Auto) 0.4, Eos # (Auto) 0.0, Baso # (Auto) 0.1, Total Counted 100, Neutrophils % (Manual) 80 H, Lymphocytes % (Manual) 14, Monocytes % (Manual) 6, Platelet Estimate Normal, RBC Morphology Normal 02/01/21 05:45: Sodium 136, Potassium 3.6, Chloride 104, Carbon Dioxide 27 D, Anion Gap 8.6, BUN 17 D, Creatinine 0.70, Estimated Creat Clear 165, Estimated GFR 131, Est GFR ( Amer) 158, Glucose 110 H, Calcium 7.7 L, Magnesium 2.0, Total Bilirubin 0.7, AST 50 D, ALT 47, Alkaline Phosphatase 89, Total Protein 5.3 L, Albumin 2.5 L, Globulin 2.8, Albumin/Globulin Ratio 0.9 L I & O for Last 24 hours: Intake & Output 01/29/21 01/30/21 01/31/21 02/01/21 23:59 23:59 23:59 23:59 Intake Total 2570 / 2570 2040 / 2040 260 / 260 Output Total 1600 / 2400 1900 / 2300 400 / 400 Balance 970 / 170 140 / -260 -140 / -140 Weight 77.111 kg 77.111 kg 77.11 kg Microbiology Reports for the Last 24 Hours: Microbiology 01/30/21 17:04 Sputum - Expectorated Sputum Gram Stain - Final 01/30/21 17:04 Sputum - Expectorated Sputum Sputum Culture - Preliminary 01/29/21 22:00 Blood Blood Culture - Preliminary NO GROWTH AFTER 48 HOURS 01/29/21 22:00 Blood Blood Culture - Preliminary NO GROWTH AFTER 48 HOURS - Constitutional mild distress - *Routine HEENT Exam Head: Present: normocephalic Eye: Present: EOMI, PERRL ENT: Present: mucous membranes moist - *Routine Neck Exam Present: supple. Absent: lymphadenopathy - *Routine Respiratory Exam Present: respiratory distress. Absent: wheezes - *Routine Cardiovascular Exam Present: RRR - *Routine Abdominal Exam Present: soft, normoactive bowel sounds. Absent: tenderness - *Routine Extremities Exam Absent: cyanosis, clubbing, edema - *Routine Skin Exam Present: warm. Absent: rash - *Routine Neurological Exam Present: alert, oriented X3 Assessment and Plan (1) Pneumonia due to COVID-19 virus Status: Acute Category: Medical Code(s): U07.1 - COVID-19; J12.82 - Pneumonia due to coronavirus disease 2019 (2) COVID-19 Status: Acute Category: Medical Code(s): U07.1 - COVID-19 (3) Pulmonary embolism Status: Acute Qualifiers: Pulmonary embolism type: multiple subsegmental (without acute cor pulmonale) Qualified Code(s): I26.94 - Multiple subsegmental pulmonary emboli without acute cor pulmonale Category: Medical Code(s): I26.99 - Other pulmonary embolism without acute cor pulmonale - Assessment and plan all Dx Assessment and Plan for all problems:: 30-year-old male with acute hypoxemic respiratory failure secondary to COVID-19 pneumonia. Subsequent PE development. Continue anticoagulation as ordered. Continue oxygen/respiratory support as needed with Vapotherm. Continue steroids for viral pneumonia. Wean oxygen as tolerated with goal sats greater than 92%. Full code Regular diet When patient is on nasal cannula may be discharged home. At this time continues to require inpatient management
--- NOTE | 2021-02-01 17:33 | DIET.NUTRFU ---
PO intakes 75%, no N/V/D, did have tarry BM today. Weight has not been documented since admission. He continues on regular/lactose controlled diet with Breeze BID. No changes nutritional care plan at this time, continuing to monitor.
--- NOTE | 2021-02-01 18:04 | PC.NURSE ---
pt has sat up in bed most of this shift. he has not layed prone this shift. lungs are diminished but clear. bowel sounds are active in all quads. nad noted. pt is being weaned from vapotherm and is tolerating this well.
[2021-02-02] VITALS (9 sets, daily range): BP systolic 109–124; BP diastolic 72–80; PULSE 50–84; RESP 14–24; TEMP 36–37.1; O2SAT 90–99; BMI 25.4
[2021-02-02 06:40] LABS: Basophils # 0.1 K/mm3 (0-0.2); Basophils % 0.7 % (0.1-2.0); Lymphocytes # 1.1 K/mm3 (0.7-4.5); Lymphocytes % 7.8 % (10-50); Mean Corpuscular Hemoglobin 31.7 pg (27.0-31.2); Mean Corpuscular Volume 93.3 fl (80-94); Mean Platelet Volume 8.6 fl (7.4-10.4); Monocytes # 0.3 K/mm3 (0.1-1.0); Monocytes % 1.9 % (1.7-9.3); Neutrophils # 12.1 K/mm3 (1.8-7.8); Neutrophils % 89.6 % (37.0-80.0); Platelet Count 165 K/mm3 (142-424); Red Cell Distribution Width 13.1 % (11.5-17.5); White Blood Count 13.5 K/mm3 (4.8-10.8)
--- NOTE | 2021-02-02 06:46 | PC.NURSE ---
Patient A&Ox4. Patient stated he rested well tonight. Patient was upped to 80% on vaportherm during the night after O2 saturation being 88-89. Patent slept prone most the night. Will continue to monitor. Vital signs stable. Call light within reach.
[2021-02-02 06:50] LABS: Alanine Aminotransferase 45 U/L (12-78); Albumin/Globulin Ratio 1.1 (1.1-1.8); Alkaline Phosphatase 99 U/L (38-126); Aspartate Amino Transferase 41 U/L (17-59); Bilirubin,Total 0.8 mg/dl (0.2-1.3); Blood Urea Nitrogen 17 mg/dl (9-20); Calcium 8.1 mg/dl (8.4-10.2); Carbon Dioxide 31 mmol/L (22.0-30.0); Chloride 101 mmol/L (98-107); Creatinine Clearance Estimated 143 mL/min (50-200); Estimated Glomerular Filt Rate 112 ml/min (>60); GFR (African American) 136 ML/MIN (>60); Globulin 2.8 g/dL (1.3-3.2); Glucose 107 mg/dl (74-100); Sodium 137 mmol/L (136-145); Total Protein,Serum 5.8 g/dl (6.3-8.2)
[2021-02-02 06:51] LABS: MANUAL DIFFERENTIAL MANUAL DIFFERENTIAL (MANUAL DIFF)
--- NOTE | 2021-02-02 08:13 | PC.NURSE ---
RT (Lety) @ BS and decreased Vapotherm to 25L/65%
[2021-02-02 08:14] LABS: Lymphocytes % 12 % (10-50); Monocytes % 3 % (2-9); Neutrophils % 85 % (42-76); Platelet Estimate Normal; RBC Morphology Normal; Total Cells Counted 100
--- NOTE | 2021-02-02 09:19 | P.PN_ITS ---
Internal Medicine - PN: Subj *Date: 02/02/21 *Time: 09:19 Interval history: Overall patient has been somewhat improved, oxygenation has improved, he has been able to wean down on his Vapotherm, continues to have some intermittent nasal bleeding, no hemoptysis. Exam Vital signs and Labs for Last 24 Hours: Temp Pulse Resp BP Pulse Ox 98 F 70 19 124/77 97 02/02/21 08:00 02/02/21 08:00 02/02/21 08:00 02/02/21 08:00 02/02/21 08:16 Laboratory Results - last 24 hr 02/02/21 06:00: WBC 13.5 H, RBC 4.40 L, Hgb 14.0 L, Hct 41.0 L, MCV 93.3, MCH 31.7 H, MCHC 34.0, RDW 13.1, Plt Count 165, MPV 8.6, Neut % (Auto) 89.6 H, Lymph % (Auto) 7.8 L, [place] % (Auto) 1.9, Eos % (Auto) 0.0 L, Baso % (Auto) 0.7, Neut # (Auto) 12.1 H, Lymph # (Auto) 1.1, [place] # (Auto) 0.3, Eos # (Auto) 0.0, Baso # (Auto) 0.1, Total Counted 100, Neutrophils % (Manual) 85 H, Lymphocytes % (Manual) 12, Monocytes % (Manual) 3, Platelet Estimate Normal, RBC Morphology Normal 02/02/21 06:00: Sodium 137, Potassium 4.0, Chloride 101, Carbon Dioxide 31 H, Anion Gap 9.0, BUN 17, Creatinine 0.80, Estimated Creat Clear 143, Estimated GFR 112, Est GFR ( Amer) 136, Glucose 107 H, Calcium 8.1 L, Total Bilirubin 0.8, AST 41, ALT 45, Alkaline Phosphatase 99, Total Protein 5.8 L, Albumin 3.0 L D, Globulin 2.8, Albumin/Globulin Ratio 1.1 I & O for Last 24 hours: Intake & Output 01/30/21 01/31/21 02/01/21 02/02/21 11:59 11:59 11:59 11:59 Intake Total 1250 / 1250 2640 / 2640 980 / 980 2905 / 2905 Output Total 900 / 900 1500 / 1500 1500 / 1500 1150 / 1150 Balance 350 / 350 1140 / 1140 -520 / -520 1755 / 1755 Weight 170 lb 169 lb 15.975 oz 168 lb Microbiology Reports for the Last 24 Hours: Microbiology 01/30/21 17:04 Sputum - Expectorated Sputum Gram Stain - Final 01/30/21 17:04 Sputum - Expectorated Sputum Sputum Culture - Final Normal Respiratory Yesica Narrative: Alert, pleasant. Oriented x3, no rash, minimal cough. Able to sit up on the side of the bed. Lungs with rhonchi, heart rate regular, neurologic CN intact, abdomen soft, Assessment and Plan (1) Pneumonia due to COVID-19 virus Status: Acute Category: Medical Code(s): U07.1 - COVID-19; J12.82 - Pneumonia due to coronavirus disease 2019 (2) COVID-19 Status: Acute Category: Medical Code(s): U07.1 - COVID-19 (3) Pulmonary embolism Status: Acute Qualifiers: Pulmonary embolism type: multiple subsegmental (without acute cor pulmonale) Qualified Code(s): I26.94 - Multiple subsegmental pulmonary emboli without acute cor pulmonale Category: Medical Code(s): I26.99 - Other pulmonary embolism without acute cor pulmonale - Assessment and plan all Dx Assessment and Plan for all problems:: Slow improvement, lubrication for nasal cannula irritation. Continue anticoagulation therapy as steroids, hopefully discharge tomorrow with nasal cannula if able to be weaned.
--- NOTE | 2021-02-02 18:44 | PC.NURSE ---
RT (Will) decreased Vapotherm to 25L/55%.
[2021-02-03] VITALS: BP 116/81; PULSE 50; PULSE 64; RESP 21; TEMP 36.4; O2SAT 93
--- NOTE | 2021-02-03 03:31 | PC.NURSE ---
Patient is alert & oriented x4. Patient has rested well this shift. Patient has had no complaints this shift. Lung sounds are clear. Vapotherm remains at 25L & 55% FIO2. Vital signs stable, call light within reach, will continue to monitor.
[2021-02-03 04:00] VITALS: BP 116/81; PULSE 40; PULSE 64; RESP 21; TEMP 36.4; O2SAT 93
[2021-02-03 04:57] VITALS: BMI 25.0
[2021-02-03 05:40] VITALS: O2SAT 88
[2021-02-03 06:10] LABS: Basophils # 0.1 K/mm3 (0-0.2); Basophils % 0.6 % (0.1-2.0); Eosinophils % 0.1 % (0.1-12.0); Hematocrit 39.6 % (42.0-52.0); Hemoglobin 13.7 g/dL (14.1-18.0); Lymphocytes # 1.5 K/mm3 (0.7-4.5); Lymphocytes % 8.7 % (10-50); Mean Corpuscular HGB Conc 34.7 g/dL (31.8-35.4); Mean Corpuscular Hemoglobin 32.2 pg (27.0-31.2); Mean Corpuscular Volume 92.8 fl (80-94); Mean Platelet Volume 8.7 fl (7.4-10.4); Monocytes # 0.4 K/mm3 (0.1-1.0); Monocytes % 2.2 % (1.7-9.3); Neutrophils # 14.9 K/mm3 (1.8-7.8); Neutrophils % 88.3 % (37.0-80.0); Platelet Count 166 K/mm3 (142-424); Red Blood Count 4.27 M/mm3 (4.60-6.20); Red Cell Distribution Width 13.2 % (11.5-17.5); White Blood Count 16.9 K/mm3 (4.8-10.8)
[2021-02-03 06:18] LABS: MANUAL DIFFERENTIAL MANUAL DIFFERENTIAL (MANUAL DIFF)
[2021-02-03 07:07] LABS: Chloride 104 mmol/L (98-107); Potassium 3.8 mmoL/L (3.5-5.1); Sodium 137 mmol/L (136-145)
[2021-02-03 07:10] LABS: Anion Gap 7.8 mEq/L (5-15); Blood Urea Nitrogen 17 mg/dl (9-20); Carbon Dioxide 29 mmol/L (22.0-30.0); Creatinine Clearance Estimated 140 mL/min (50-200); Estimated Glomerular Filt Rate 112 ml/min (>60); GFR (African American) 136 ML/MIN (>60); Glucose 102 mg/dl (74-100)
[2021-02-03 08:00] VITALS: BP 139/91; PULSE 56; PULSE 70; RESP 17; TEMP 36.6; O2SAT 88; O2SAT 93
--- NOTE | 2021-02-03 08:12 | PC.NURSE ---
RT (Liz) weaned Vapotherm 25L/55% to 6L NC. Pt tolerating well. O2 sat 93-95% on 6L NC.
[2021-02-03 08:22] LABS: Lymphocytes % 17 % (10-50); Monocytes % 4 % (2-9); Neutrophils % 79 % (42-76); Platelet Estimate Normal; RBC Morphology Normal; Total Cells Counted 100
--- NOTE | 2021-02-03 08:31 | PC.NURSE ---
RA O2 sat 85%
--- NOTE | 2021-02-03 08:35 | HMH.DCSUM ---
General - General Admission date:: 01/30/21 Discharge date: 02/03/21 HPI HPI: Patient is a 30-year-old male who reports 14 days of fever along with diarrhea, shortness of breath, and decreased p.o. intake. He reports on the this found to be Covid positive. On he was diagnosed with pneumonia and started on amoxicillin and doxycycline. He reports for the last 3 days his symptoms have worsened and he has been unable to get out of bed and he complains of inability to tolerate p.o., diarrhea, continued fever, shortness of breath. He has been taking Tylenol and ibuprofen with no improvement. On arrival to the emergency department he is satting 48% on room air with increased work of breathing. Ports his and kids were sick as well however they got over their symptoms quickly. He does report that he has also coughed up small amounts of blood Above note per ER physician. I saw patient in the office 3 days ago, O2 sats were normal, and he had a slight cough and shortness of air but is certainly escalated over the last 3 days. Reviewed notes, CTA reports and chest x-ray reports. Hospital Course Hospital Course: Patient was admitted as noted, found to be significantly hypoxic, CTA in the ER confirmed that he had bilateral pulmonary emboli and he was begun on Lovenox and then transitioned over to Xarelto therapy. He was placed on Vapotherm which resolved his hypoxia but he continued to have a have significant hypoxia when weaned off. Over the last several days slow weaning was accomplished and he was finally able to be weaned over to a nasal cannula at 6 L yesterday. [place] much better, tolerating p.o. fluids. No evidence of bleeding. O2 saturations had improved. We will be sending him home today. He will be on Xarelto 15 mg twice daily for the next 3 weeks, he will be on azithromycin and dexamethasone for the next week as prescribed. I will see him in my office a week from tomorrow. Nutrition, hydration and oxygenation's instructions were given to patient. He will require O2 at 6 L nasal cannula until I see him in the office and begin weaning. Objective Vital signs: Temp Pulse Resp BP Pulse Ox 97.8 F 56 L 17 139/91 H 93 L 02/03/21 08:00 02/03/21 08:00 02/03/21 08:00 02/03/21 08:00 02/03/21 08:00 no acute distress Comments: Much more comfortable vis-?-vis breathing and talking than on admission - *Routine HEENT Exam Head: Present: normocephalic Eye: Present: EOMI, PERRL ENT: Present: mucous membranes moist - *Routine Neck Exam Present: supple - *Routine Respiratory Exam Present: CTA bilaterally - *Routine Cardiovascular Exam Present: RRR - *Routine Abdominal Exam Present: soft, normoactive bowel sounds. Absent: tenderness - *Routine Extremities Exam Absent: cyanosis, clubbing, edema - *Routine Skin Exam Present: warm. Absent: rash - Detailed Eye Exam Eyelids: Bilateral normal inspection Results Labs on day of discharge: Labs from last 24 hours 02/03/21 02/03/21 04:48 04:48 WBC 16.9 H D RBC 4.27 L Hgb 13.7 L Hct 39.6 L MCV 92.8 MCH 32.2 H MCHC 34.7 RDW 13.2 Plt Count 166 MPV 8.7 Neut % (Auto) 88.3 H Lymph % (Auto) 8.7 L [place] % (Auto) 2.2 Eos % (Auto) 0.1 Baso % (Auto) 0.6 Neut # (Auto) 14.9 H Lymph # (Auto) 1.5 [place] # (Auto) 0.4 Eos # (Auto) 0.0 Baso # (Auto) 0.1 Total Counted 100 Neutrophils % (Manual) 79 H Lymphocytes % (Manual) 17 Monocytes % (Manual) 4 Platelet Estimate Normal RBC Morphology Normal Sodium 137 Potassium 3.8 Chloride 104 Carbon Dioxide 29 Anion Gap 7.8 BUN 17 Creatinine 0.80 Estimated Creat Clear 140 Estimated GFR 112 Est GFR ( Amer) 136 Glucose 102 H Calcium 8.0 L Preliminary micro results at discharge 01/29/21 22:00 Blood Culture - Preliminary Blood NO GROWTH AFTER 48 HOURS 01/29/21 22:00 Blood Culture - Prel
--- NOTE | 2021-02-03 10:43 | PC.NURSE ---
O2 set up with Samuel Nunes). O2 teaching completed and pt verbalizes understanding. Pt sent home on 6L NC. Michael to meet pt at home to set up concentrator.
== END 2021-02-03 10:50 | disposition home or self-care (01) | DRG 177 ==
LOC: ER 22:02 → ICU 01-30 00:32
PROVIDERS: Internal Medicine Adolescent Medicine; Admitting Provider Family Medicine; Emergency Provider Emergency Medicine; PCP Internal Medicine Adolescent Medicine; Visit Provider Internal Medicine Adolescent Medicine
DX: U07.1 COVID-19 (principal); J12.82 Pneumonia due to coronavirus disease 2019; I26.94 Multiple subsegmental thrombotic pulmonary emboli without acute cor pulmonale; J96.01 Acute respiratory failure with hypoxia; R04.2 Hemoptysis; Z87.891 Personal history of nicotine dependence
CPT/HCPCS: 36415; 71045; 71275; 80048; 80053; 82803; 83605; 83735; 85007; 85025; 85610; 85730; 87040; 87070; 87205; 93005; 93306; 94760; 96365; 96366; 96375; 99285; Q9967; U0003

== ENCOUNTER 2021-06-19 10:22 | Emergency (ER) | payer OTHER, SELFPAY ==
--- NOTE | 2021-06-19 08:07 | ECG_ITS ---
APPROVED REPORT Exam: Resting ECG HR:80 bpm ECG Measurements Heart Rate 80 AXES IA 140 P 59 QRSd 96 QRS 47 QT 384 T 57 QTc 442 Conclusion Normal sinus rhythm with sinus arrhythmia Normal ECG Electronically signed by : Redd Owens MD 06/19/2021 21:12:49
[2021-06-19 10:25] VITALS: BP 144/98; PULSE 89; RESP 16; TEMP 37.1; O2SAT 100; BMI 26.9
--- NOTE | 2021-06-19 10:29 | CT_ITS ---
PROCEDURE INFORMATION: Exam: CT Head Without Contrast Exam date and time: 06/19/2021 10:29 AM Age: 31 years old Clinical indication: Pain; Other: Fall 5 days ago with left sided weakness; Additional info: Left sided heaviness TECHNIQUE: Imaging protocol: Computed tomography of the head without contrast. Radiation optimization: All CT scans at this facility use at least one of these dose optimization techniques: automated exposure control; mA and/or kV adjustment per patient size (includes targeted exams where dose is matched to clinical indication); or iterative reconstruction. COMPARISON: No relevant prior studies available. FINDINGS: Brain: Normal. No hemorrhage. Unremarkable white matter. No mass effect. Cerebral ventricles: No ventriculomegaly. Paranasal sinuses: Visualized sinuses are unremarkable. No fluid levels. Mastoid air cells: Visualized mastoid air cells are well aerated. Bones/joints: Unremarkable. No acute fracture. Soft tissues: Unremarkable. IMPRESSION: No acute intracranial abnormality.
[2021-06-19 10:30] VITALS: BMI 26.9
--- NOTE | 2021-06-19 10:41 | HMH.EDGENADL ---
ED Disposition Clinical Impression: Transient weakness of left leg Disposition: Home, Self-Care Condition on Discharge: Good Instructions: Anxiety and Panic Attacks (Alternative Therapy), DI for Muscle Weakness Additional Instructions: Please follow-up with your primary care physician in 2 to 3 days for further management. Please discuss with your primary care physician regarding your anxiety. Please keep your appointment with your therapist tomorrow. Please return back to the emergency department if symptoms recur. Referrals: Redd Owens MD [Primary Care Provider] - Time of Disposition: 11:50 - Critical Care Critical Care Time: No Attestation: On 06/19/21, the high probability of a clinically significant, sudden or life threatening deterioration of the following system(s) required my full and direct attention, intervention and personal management. The time I documented below is in addition to time spent performing reported procedures but includes the following listed in this critical care notation. Medical Decision Making - Medical Records Medical records reviewed: Yes: I reviewed the patient's medical records. - [place] Inquiry Pt receiving controlled substance: No Vital Signs: 06/19/21 10:25 06/19/21 11:00 06/19/21 11:30 Temperature 98.8 F Temperature Source Oral Pulse Rate 83 83 Pulse Rate [Right Radial] 89 Respiratory Rate 16 15 18 Blood Pressure 134/83 130/88 Blood Pressure [Right Arm] 144/98 H Blood Pressure Mean 96 103 Blood Pressure Mean [Right Arm] 113 Blood Pressure Source [Right Arm] Automatic Cuff Blood Pressure Position [Right Arm] Sitting 02 Sat by Pulse Oximetry 100 100 100 Oxygen Delivery Method Room Air 06/19/21 12:10 Temperature 98.8 F Temperature Source Pulse Rate 83 Pulse Rate [Right Radial] Respiratory Rate 18 Blood Pressure 130/88 Blood Pressure [Right Arm] Blood Pressure Mean Blood Pressure Mean [Right Arm] Blood Pressure Source [Right Arm] Blood Pressure Position [Right Arm] 02 Sat by Pulse Oximetry Oxygen Delivery Method Room Air - Lab Data Lab results reviewed: Yes: I reviewed the patient's lab results. Lab Results 06/19/21 10:35: WBC 6.2, RBC 5.20, Hgb 16.4, Hct 46.1, MCV 88.5, MCH 31.6 H, MCHC 35.6 H, RDW 13.4, Plt Count 240, MPV 7.4, Neut % (Auto) 70.8, Lymph % (Auto) 24.2, [place] % (Auto) 3.2, Eos % (Auto) 1.0, Baso % (Auto) 0.7, Neut # (Auto) 4.4, Lymph # (Auto) 1.5, [place] # (Auto) 0.2, Eos # (Auto) 0.1, Baso # (Auto) 0.0 06/19/21 10:35: Sodium 139, Potassium 3.8, Chloride 107, Carbon Dioxide 21 L, Anion Gap 14.8, BUN 11, Creatinine 0.90, Estimated Creat Clear 136, Estimated GFR 97, Est GFR ( Amer) 118, Glucose 112 H, Calcium 9.5, Total Bilirubin 0.7, AST 31, ALT 28, Alkaline Phosphatase 66, Troponin I < 0.01, Total Protein 7.0, Albumin 4.5, Globulin 2.5, Albumin/Globulin Ratio 1.8 06/19/21 10:35: Magnesium 1.8 Result diagrams: 06/19/21 10:35 06/19/21 10:35 Medical Decision Narrative: Mr. Sanford is a 31-year-old male with past medical history for COVID-19 complicated by bilateral pulmonary emboli who presents to the emergency department for left lower extremity heaviness. Patient reports symptoms have been intermittent for the last 3 to 4 days. Patient is afebrile and hemodynamically stable on arrival. Physical exam remarkable for well-appearing male. No focal deficits on exam visual acuity intact. Differentials to consider but not limited to include; acute intracranial process, CVA, anxiety, metabolic/electrolyte derangement. CT head without contrast is obtained which shows no acute intracranial process. Basic labs, troponin/stroke work-up labs are unremarkable. Patient is reassessed and reports symptoms have improved and he belives symptoms are contributed to his anxiety given episodes comes on when he is anxious. Patient has an appointment w/ a therapist tomorrow. Patient reports that he was prescribed anxiolytic meds but
[2021-06-19 10:43] LABS: Basophils % 0.7 % (0.1-2.0); Eosinophils # 0.1 K/mm3 (0.0-0.4); Hematocrit 46.1 % (42.0-52.0); Hemoglobin 16.4 g/dL (14.1-18.0); Lymphocytes # 1.5 K/mm3 (0.7-4.5); Lymphocytes % 24.2 % (10-50); Mean Corpuscular HGB Conc 35.6 g/dL (31.8-35.4); Mean Corpuscular Hemoglobin 31.6 pg (27.0-31.2); Mean Corpuscular Volume 88.5 fl (80-94); Mean Platelet Volume 7.4 fl (7.4-10.4); Monocytes # 0.2 K/mm3 (0.1-1.0); Monocytes % 3.2 % (1.7-9.3); Neutrophils # 4.4 K/mm3 (1.8-7.8); Neutrophils % 70.8 % (37.0-80.0); Platelet Count 240 K/mm3 (142-424); Red Cell Distribution Width 13.4 % (11.5-17.5); White Blood Count 6.2 K/mm3 (4.8-10.8)
[2021-06-19 10:53] LABS: Magnesium 1.8 mg/dl (1.6-2.3)
[2021-06-19 10:54] LABS: Alanine Aminotransferase 28 U/L (12-78); Albumin Level 4.5 g/dl (3.5-5.0); Albumin/Globulin Ratio 1.8 (1.1-1.8); Alkaline Phosphatase 66 U/L (38-126); Anion Gap 14.8 mEq/L (5-15); Aspartate Amino Transferase 31 U/L (17-59); Bilirubin,Total 0.7 mg/dl (0.2-1.3); Blood Urea Nitrogen 11 mg/dl (9-20); Calcium 9.5 mg/dl (8.4-10.2); Carbon Dioxide 21 mmol/L (22.0-30.0); Chloride 107 mmol/L (98-107); Creatinine Clearance Estimated 136 mL/min (50-200); Estimated Glomerular Filt Rate 97 ml/min (>60); GFR (African American) 118 ML/MIN (>60); Globulin 2.5 g/dL (1.3-3.2); Glucose 112 mg/dl (74-100); Potassium 3.8 mmoL/L (3.5-5.1); Sodium 139 mmol/L (136-145)
[2021-06-19 11:00] VITALS: BP 134/83; PULSE 83; RESP 15; O2SAT 100
[2021-06-19 11:08] LABS: Troponin I < 0.01 ng/ml (0.00-0.034)
[2021-06-19 11:30] VITALS: BP 130/88; PULSE 83; RESP 18; O2SAT 100
[2021-06-19 12:10] VITALS: BP 130/88; PULSE 83; RESP 18; TEMP 37.1; O2SAT 100
== END 2021-06-19 12:10 | disposition home or self-care (01) ==
PROVIDERS: Emergency Provider Student in an Organized Health Care Education/Training Program; PCP Internal Medicine Adolescent Medicine
DX: M62.81 Muscle weakness (generalized) (principal); R29.898 Other symptoms and signs involving the musculoskeletal system; Z86.711 Personal history of pulmonary embolism; Z87.891 Personal history of nicotine dependence; F41.9 Anxiety disorder, unspecified
CPT/HCPCS: 70450; 80053; 83735; 84484; 85025; 93005; 99283

== ENCOUNTER 2023-01-28 09:03 | Emergency (ER) | payer BC, SELFPAY ==
[2023-01-28 09:10] VITALS: BP 150/82; PULSE 76; RESP 20; TEMP 36.6; O2SAT 100; BMI 27.2
--- NOTE | 2023-01-28 09:21 | EXP.UTC ---
Discharge Plan Disposition Patient Disposition: Home, Self-Care Condition: Good Prescriptions Prescriptions: New polymyxin B sulf-trimethoprim [Polytrim] 10,000 unit- 1 mg/mL drops 1 drp ophthalmic (eye) Q3H 10 Days Qty: 10 0RF Rx Instructions: while awake; do not exceed 6 doses in 24 hours No Action loratadine [Claritin] 10 mg Tablet 10 mg PO DAILY Referrals Follow up/Referrals: Redd Owens MD [Primary Care Provider] - See instructions Clinical Impressions Clinical Impression: Acute conjunctivitis, bilateral Qualifiers: Acute conjunctivitis type: bacterial Qualified Code(s): H10.33 - Unspecified acute conjunctivitis, bilateral Instructions Patient Instructions: DI for Conjunctivitis Discharge ED Provider: Imani Oakes [facility] General Stated complaint: possible pink eye Mode of Arrival: Ambulatory Source of Information: Patient Limitations: No Limitations Time Seen by Provider: 01/28/23 09:15 Description of Symptoms (Recalled from Triage Doc. by RN): PATIENT C/O REDNESS, DRAINAGE AND SWELLING TO RIGHT EYE THAT STARTED LAST NIGHT HEENT Symptoms (Recalled from RN notes): Yes Resp Symptoms (Recalled from RN notes): No Skin Symptoms (Recalled from RN notes): No MS Symptoms (Recalled from RN notes): No Functional Status (Recalled from RN notes): WNL History of Present Illness Provider Complaint: Pt relates that he started with pink eye in his left eye a few days ago and has been treating with left over medication from his daughters eye drops, as she has had pink eye recently. Pt states that yesterday his right eye started becoming red with yellow thick drainage and swelling around his eye. Pt reports that he does not have enough drops to treat his infection completely. Related Data Home Medications Medication Instructions Recorded Confirmed loratadine 10 mg tablet (Claritin) 10 mg PO DAILY Allergy Symptoms 01/28/23 01/28/23 Previous Rx's Medication Instructions Recorded polymyxin B sulfate 10,000 1 drp ophthalmic (eye) Q3H 10 days 01/28/23 unit-trimethoprim 1 mg/mL eye #10 mL drops (Polytrim) Allergies Allergy/AdvReac Type Severity Reaction Status Date / Time Pertussis Vaccines Allergy Mild Verified 01/30/21 02:44 [PERTUSSIS VACCINES] lactulose Allergy Verified 02/01/21 07:03 TOPICAL STEROIDS Allergy Unknown Uncoded 01/04/21 09:42 Worker's Comp Is this a Worker's Comp case?: No PFSH [facility] Disclaimer: The information contained in this section may have been updated after the patient was seen, as this information can be updated by other users. Social History Smoking Status: Former smoker alcohol intake: current counseling provided: provider counseling substance use type: denies use current occupational status: employed Travel in the last 8 weeks: Inside the [place] household members: spouse housing: house current occupation: product support analyst current occupational exposures/hazards: Yes caffeine: No ROS Obtained: Yes All systems reviewed & no additional complaints except as documented Constitutional Constitutional: Reports system reviewed and no additional complaints, except as documented Eyes Eyes: Reports system reviewed and no additional complaints, except as documented, Reports as per HPI, Reports eye discharge, Reports irritation and Reports photophobia ENT Ears, Nose, Mouth, and Throat: Reports system reviewed and no additional complaints, except as documented Comments: reports recent cold symptoms, but treated with Claritan and is no longer having symptoms. Cardiovascular Cardiovascular: Reports system reviewed and no additional complaints, except as documented Respiratory Respiratory: Reports system reviewed and no additional complaints, except as documented Gastrointestinal Gastrointestingal: Reports system reviewed and no additional complaints, except as documented Genitourinary Male Genitourinary: Reports system review
[2023-01-28 09:23] VITALS: BP 150/82; PULSE 76; RESP 20; TEMP 36.6; O2SAT 100
== END 2023-01-28 09:27 | disposition home or self-care (01) ==
PROVIDERS: Emergency Provider Nurse Practitioner Family; PCP Internal Medicine Adolescent Medicine
DX: H10.33 Unspecified acute conjunctivitis, bilateral (principal); Z87.891 Personal history of nicotine dependence
CPT/HCPCS: 99212; 99214; G0463

== ENCOUNTER 2023-06-10 19:41 | Emergency (ER) | payer BC, SELFPAY ==
--- NOTE | 2023-06-10 19:46 | HMH.EDGENADL ---
Discharge Plan Disposition Patient Disposition: Home, Self-Care Prescriptions Prescriptions: No Action loratadine [Claritin] 10 mg Tablet 10 mg PO DAILY polymyxin B sulf-trimethoprim [Polytrim] 10,000 unit- 1 mg/mL drops 1 drp ophthalmic (eye) Q3H 10 Days Qty: 10 0RF Rx Instructions: while awake; do not exceed 6 doses in 24 hours Referrals Follow up/Referrals: Redd Owens MD [Primary Care Provider] - See instructions Activity Restrictions/Add. Instructions Additional Instructions/Restrictions: At this time is felt you are safe to be discharged home. Please follow-up with your family doctor in 10 to 12 days for suture removal. If signs of infection such as swelling, pus draining from the wound, red streaking up your hand, severe pain do not hesitate to return for continued evaluation. Clinical Impressions Clinical Impression: Laceration of thumb Instructions Patient Instructions: DI for Laceration Repair Discharge ED Provider: Amadou Hardy General Adult HPI General Chief complaint: Wound/Laceration Stated complaint: AO 06/10, left thumb lac Time Seen by Provider: 06/10/23 19:45 History of Present Illness HPI narrative: Patient is a 33-year-old male with no pertinent past medical history who presents emergency department for evaluation of traumatic injury sustained to his left thumb. Proximately 1 hour prior to arrival patient cut his left index finger with a chisel while he was preparing [employer] presents. Last Tdap greater than 5 years ago. Due to persistent bleeding he presents here for continued evaluation. No other traumatic injuries. Related Data Home Medications Medication Instructions Recorded Confirmed loratadine 10 mg tablet (Claritin) 10 mg PO DAILY Allergy Symptoms 01/28/23 01/28/23 Previous Rx's Medication Instructions Recorded polymyxin B sulfate 10,000 1 drp ophthalmic (eye) Q3H 10 days 01/28/23 unit-trimethoprim 1 mg/mL eye #10 mL drops (Polytrim) Allergies Allergy/AdvReac Type Severity Reaction Status Date / Time Pertussis Vaccines Allergy Mild Verified 06/10/23 20:00 [PERTUSSIS VACCINES] lactulose Allergy Verified 06/10/23 20:00 TOPICAL STEROIDS Allergy Unknown Uncoded 01/04/21 09:42 [facility] Disclaimer: The information contained in this section may have been updated after the patient was seen, as this information can be updated by other users. Social History Smoking Status: Never smoker alcohol intake: current counseling provided: provider counseling substance use type: denies use current occupational status: employed Travel in the last 8 weeks: Inside the [place] household members: spouse housing: house current occupation: night clerk auditor current occupational exposures/hazards: Yes caffeine: No ROS Obtained: Yes Systems reviewed as appropriate & no additional complaints except as documented Physical Exam General General appearance: alert and in no apparent distress Head Head exam: atraumatic and normocephalic Eye Eye exam: Present PERRL and EOMI ENT ENT exam: Present mucous membranes moist Neck Neck exam: Present normal inspection Chest Chest inspection: Present normal inspection and symmetric chest wall rise Respiratory Respiratory exam: Absent respiratory distress Cardiovascular Cardiovascular exam: Present regular rate and normal rhythm Extremities Exam Extremities exam: Present other (3 cm linear laceration over the finger pad of the left thumb that is well-approximated, oozing blood. No nailbed involvement, distal capillary refill preserved. Sensation intact to light touch over the finger pad of the left thumb.) Neurological Exam Neurological exam: Present alert Psychiatric Psychiatric exam: Present normal affect Skin Skin exam: Present warm and dry Medical Decision Making Nolan Inquiry Pt receiving controlled substance: No Vital Signs: 06/10/23 19:47 Temperature 97.8
[2023-06-10 19:47] VITALS: BP 156/111; PULSE 97; RESP 18; TEMP 36.6; O2SAT 98; BMI 29.6
--- NOTE | 2023-06-10 19:54 | PC.NURSE ---
Pt left thumb cleansed with soap and water, flushed with saline. Lac kit at bedside
[2023-06-10 20:47] VITALS: BP 147/87; PULSE 82; RESP 18; TEMP 36.6; O2SAT 98
== END 2023-06-10 20:52 | disposition home or self-care (01) ==
PROVIDERS: Emergency Provider Emergency Medicine; PCP Internal Medicine Adolescent Medicine
DX: S61.012A Laceration without foreign body of left thumb without damage to nail, initial encounter (principal); W26.8XXA Contact with other sharp object(s), not elsewhere classified, initial encounter
CPT/HCPCS: 12002; 90471; 90714; 99283